=== PATIENT | female | born 2000 | race American Indian/Alaskan Native ===

== ENCOUNTER 2021-01-18 02:49 | Emergency (ER) | payer BC, OTHER ==
[2021-01-18 03:15] VITALS: BP 121/79
[2021-01-18 03:49] LABS: Basophils % (Auto) 0.5 % (0.0-1.8); Eosinophils # (Auto) 0.1 K/mm3 (0.0-0.4); Eosinophils % (Auto) 1.5 % (0.0-4.3); Hematocrit 43.2 % (30.3-42.9); Hemoglobin 14.7 gm/dl (10.1-14.3); Lymphocytes # (Auto) 1.6 K/mm3 (1.2-5.4); Lymphocytes % (Auto) 17.4 % (13.4-35.0); Mean Corpuscular HGB Conc 34 % (30-34); Mean Corpuscular Volume 72 fl (79-97); Monocytes # (Auto) 1.1 K/mm3 (0.0-0.8); Monocytes % (Auto) 11.8 % (0.0-7.3); Platelet Count 317 K/mm3 (140-440); Red Blood Count 5.99 M/mm3 (3.65-5.03); Red Cell Distribution Width 17.4 % (13.2-15.2)
[2021-01-18 04:12] LABS: Alanine Aminotransferase 13 units/L (7-56); Albumin 5.3 g/dL (3.9-5); BUN/Creatinine Ratio 13; Blood Urea Nitrogen 12 mg/dL (7-17); Calcium 9.6 mg/dL (8.4-10.2); Hemolysis Index 2
[2021-01-18 04:21] LABS: Bacteria,Urine 1+ /HPF (Negative); Hyaline Casts,Urine 3 /LPF; Mucus,Urine 1+ /HPF
[2021-01-18 04:22] LABS: HCG Qualitative,Urine Negative (Negative)
[2021-01-18 04:25] LABS: Bilirubin,Urine NEG (Negative); Blood,Urine NEG (Negative); Color,Urine Yellow (Yellow)
[2021-01-18] MEDS ORDERED: ONDANSETRON 4 MG ODT TAB PO STA (05:56)
[2021-01-18] MEDS ORDERED: HYDROcodone/ACETAMINOPHEN 5-325 MG TAB PO STA (05:56)
--- NOTE | 2021-01-18 06:14 | Emergency Department Report ---
ED N/V/D HPI - General Chief complaint: Abdominal Pain Stated complaint: NAUSEA/VOMITING/DIFFICULT URINATION Time Seen by Provider: 01/18/21 05:53 Source: patient Mode of arrival: Ambulatory Limitations: No Limitations - History of Present Illness Initial comments: 20-year-old female is emerged from complaining of a 1 week history of abdominal pain associated with nausea vomiting and diarrhea. States pain started in her flank and has been radiating towards her abdomen and abdominal cramping nature. No fevers, chills, sweats no chest pain palpitation no nausea vomiting MD complaint: nausea -: Gradual Associated Abdominal Pain: Yes Location: diffuse, flank Radiation: none Severity: mild, moderate Quality: aching, dull Consistency: constant Improves with: none Worsens with: none Associated Symptoms: nausea/vomiting. denies: myalgias, chest pain, cough, fever/chills, loss of appetite, dysuria, shortness of breath, syncope, weakness - Related Data Previous Rx's Medication Instructions Recorded Last Taken Type Ferrous Sulfate [Feosol 325 MG tab] 325 mg PO BID #60 tablet 08/29/20 Unknown Rx Ibuprofen [Motrin] 600 mg PO Q6H PRN #30 tablet 08/29/20 Unknown Rx Hyoscyamine Subl [Levsin Sl 0.125 0.125 mg PO Q6HR #20 tablet 01/18/21 Unknown Rx TAB] Ondansetron [Zofran ODT TAB] 4 mg PO ONCE #20 tab.rapdis 01/18/21 Unknown Rx traMADoL [Ultram] 50 mg PO Q6HR PRN #14 tablet 01/18/21 Unknown Rx Allergies Allergy/AdvReac Type Severity Reaction Status Date / Time No Known Allergies Allergy Unverified 03/02/20 11:07 ED Review of Systems ROS: Stated complaint: NAUSEA/VOMITING/DIFFICULT URINATION Other details as noted in HPI Comment: All other systems reviewed and negative ED Past Medical Hx - Past Medical History Hx Hypertension: No Hx Heart Attack/AMI: No Hx Diabetes: No Hx Deep Vein Thrombosis: No Hx Liver Disease: No Hx Renal Disease: No Hx Sickle Cell Disease: No Hx Seizures: No Hx Asthma: No Hx COPD: No Hx HIV: No - Surgical History Hx Pacemaker: No Hx Internal Defibrillator: No - Social History Smoking Status: Never Smoker - Medications Home Medications: Home Medications Medication Instructions Recorded Confirmed Last Taken Type Ferrous Sulfate [Feosol 325 MG tab] 325 mg PO BID #60 tablet 08/29/20 Unknown Rx Ibuprofen [Motrin] 600 mg PO Q6H PRN #30 tablet 08/29/20 Unknown Rx Hyoscyamine Subl [Levsin Sl 0.125 0.125 mg PO Q6HR #20 tablet 01/18/21 Unknown Rx TAB] Ondansetron [Zofran ODT TAB] 4 mg PO ONCE #20 tab.rapdis 01/18/21 Unknown Rx traMADoL [Ultram] 50 mg PO Q6HR PRN #14 tablet 01/18/21 Unknown Rx ED Physical Exam - General Limitations: No Limitations General appearance: alert, in no apparent distress - Head Head exam: Present: atraumatic, normocephalic - Eye Eye exam: Present: normal appearance, PERRL, EOMI Pupils: Present: normal accommodation - ENT ENT exam: Present: normal exam, mucous membranes moist - Neck Neck exam: Present: normal inspection, full ROM - Respiratory Respiratory exam: Present: normal lung sounds bilaterally. Absent: respiratory distress - Cardiovascular Cardiovascular Exam: Present: regular rate, normal rhythm. Absent: systolic murmur, diastolic murmur, rubs, gallop - GI/Abdominal GI/Abdominal exam: Present: soft, tenderness (To the left upper quadrant.), normal bowel sounds - Extremities Exam Extremities exam: Present: normal inspection - Back Exam Back exam: Present: normal inspection, CVA tenderness (R), other (To lower back region with palpation.) - Neurological Exam Neurological exam: Present: alert, oriented X3, CN II-XII intact, normal gait - Psychiatric Psychiatric exam: Present: normal affect, normal mood - Skin Skin exam: Present: warm, dry, intact, normal color. Absent: rash ED Course Vital Signs 01/18/21 03:13 Temperature 97.7 F Pulse Rate 89 Respiratory 16 Rate Blood Pressure 121/79 O2 Sat by Pulse 89 Oximetry ED Medical Decision Making - Lab Data Result diagrams: 01/18/21 03:26 01/18/21 03:26 - Medical Decision Making The cause of the patient symptoms not clear but the patient is overall well- appearing and suspected to have a transient course of illness. Given the course and examination does not appear to be an emergent cause of the symptoms such as small bowel obstruction, coronary syndrome, bowel ischemia, DKA, pancreatitis, appendicitis, other acute abdomen or other emergent problem. Reassessment after treatment the patient is feeling much much better tolerating p.o. fluids and shows no signs of any dehydration. Disposition discharge home with prompt primary care physician follow-up in the next 24 hours strict return precautions were discussed this patient presents with abdominal pain of unclear etiology. Their evaluation has not identified a emergent etiology for the abdominal pain. Specifically, given the very benign exam, normal laboratory studies, and lack of significant risk factors, I have a very low suspicion for appendicitis, ischemic bowel, bowel perforation, or any other life threatening disease. I have discussed with the patient the level of uncertainty with undifferentiated abdominal pain and clearly explained the need to follow-up as noted on the discharge instructions, or return to the Emergency Department immediately if the pain worsens, develops fever, persistent and uncontrollable vomiting, or for any new symptoms or concerns. I discussed with the patient that this presentation today for abdominal pain could represent a significant risk for an acute abdominal process. Although the tests in the ED were essentially normal, there is still a possibility of a process such as appendicitis, diverticulitis, cholecystitis, ulcer, early bowel obstruction, mesenteric ischemia, kidney stone, or even kidney infection which could subsequently cause disability or . The patient understands that they must return within 24 hours for a recheck or see their physician within 24 hours for re-exam due to the possibility of significant surgical or medical process. Critical care attestation.: If time is entered above; I have spent that time in minutes in the direct care of this critically ill patient, excluding procedure time. ED Disposition Clinical Impression: Nausea, Abdominal pain Disposition: DC-01 TO HOME OR SELFCARE Is pt being admited?: No Does the pt Need Aspirin: No Condition: Stable Instructions: Abdominal Pain (ED), Nausea and Vomiting, Adult, Abdominal Pain, Adult, [id number] Prescriptions: Hyoscyamine Subl [Levsin Sl 0.125 TAB] 0.125 mg PO Q6HR #20 tablet traMADoL [Ultram] 50 mg PO Q6HR PRN #14 tablet PRN Reason: Pain Ondansetron [Zofran ODT TAB] 4 mg PO ONCE #20 tab.rapdis Referrals: [facility] [Provider Group] - 3-5 Days
== END 2021-01-18 06:20 | disposition home or self-care (01) ==
LOC: ED 02:49
DX: R11.0 Nausea (principal); R10.9 Unspecified abdominal pain; Z79.899 Other long term (current) drug therapy
CPT/HCPCS: 36415; 80053; 81001; 81025; 85025; 87086; Q0162

== ENCOUNTER 2021-01-22 11:34 | Emergency (ER) | payer BC, OTHER ==
--- NOTE | 2021-01-22 13:08 | Event Note ---
ED Screening Note Date of service: 01/22/21 Time: 13:07 ED Screening Note: Patient presents with complaints of nausea and vomiting with lower abdominal pain x3 weeks Patient seen here earlier this week for the same-no white count noted at the time She did have a UTI Positive right lower quadrant tenderness on exam today Zofran prescribed not helping This initial assessment/diagnostic orders/clinical plan/treatment(s) is/are subject to change based on patients health status, clinical progression and re- assessment by fellow clinical providers in the ED. Further treatment and workup at subsequent clinical providers discretion. Patient/guardian urged not to elope from the ED as their condition may be serious if not clinically assessed and managed. Initial orders include: Labs CT abdomen likely
[2021-01-22 14:40] LABS: Basophils % (Auto) 0.4 % (0.0-1.8); Eosinophils % (Auto) 0.4 % (0.0-4.3); Hematocrit 44.1 % (30.3-42.9); Hemoglobin 14.6 gm/dl (10.1-14.3); Lymphocytes # (Auto) 1.4 K/mm3 (1.2-5.4); Lymphocytes % (Auto) 27.1 % (13.4-35.0); Mean Corpuscular HGB Conc 33 % (30-34); Mean Corpuscular Volume 73 fl (79-97); Monocytes # (Auto) 0.7 K/mm3 (0.0-0.8); Monocytes % (Auto) 13.2 % (0.0-7.3); Platelet Count 306 K/mm3 (140-440); Red Blood Count 6.09 M/mm3 (3.65-5.03); Red Cell Distribution Width 17.2 % (13.2-15.2)
[2021-01-22 15:39] LABS: Alanine Aminotransferase 21 units/L (7-56); Albumin 5.1 g/dL (3.9-5); BUN/Creatinine Ratio 14; Blood Urea Nitrogen 11 mg/dL (7-17); Calcium 10.1 mg/dL (8.4-10.2); Hemolysis Index 4
[2021-01-22] MEDS ORDERED: HYDROmorphone 1 MG/1 ML INJ IV ONE ×2 (17:21→18:50)
[2021-01-22] MEDS ORDERED: ONDANSETRON 4 MG/2 ML INJ IV ONE (17:21)
[2021-01-22] MEDS ORDERED: SODIUM CHLORIDE 0.9% 1000 ML 1,000 ML IV ONE (17:21)
--- NOTE | 2021-01-22 17:29 | Emergency Department Report ---
ED Abdominal Pain HPI - General Chief Complaint: Abdominal Pain Stated Complaint: NAUSEA/VOMITTING PUI?: No Time Seen by Provider: 01/22/21 13:05 Source: patient Mode of arrival: Ambulatory Limitations: No Limitations - History of Present Illness Initial Comments: Patient is a 20-year-old female presents emergency room with complaints of abdominal pain and nausea vomiting. Patient states the symptoms for 3 weeks. Patient states they are worsening. Patient states she has vomited 4 times today. Patient states she has been is seen multiple times for this in multiple locations. Patient states she was seen here last Monday. And diagnosed with external patient is before that she was seen at [facility] and was discharged. Patient states she never followed up after coming here with a outpatient clinic and was given Zofran. Patient states Zofran is not working. Patient states she has not had a CT scan of her abdomen. Patient denies dysuria. Patient denies diarrhea. Patient states she is having blood streaking in her vomitus. Patient denies gross blood in the vomitus. Patient denies fever and chills. Patient d enies cough. Patient denies chest pain and shortness of breath. Patient states her abdominal pain is 8 out of 10. Patient states the pain is in the bilateral lower quadrants and epigastric. Patient states she had a baby in August. Patient states there is no chance she is . Patient states she is already had a urine and serum test which were both negative. Patient denies recent travel. Patient denies recent international travel. Patient denies exposure to the novel coronavirus. Patient denies sick contacts. Patient denies fever and chills. Patient denies cough. Patient denies diarrhea. Patient denies coming in contact with anybody with symptoms of the novel coronavirus. MD Complaint: abdominal pain -: Sudden Location: LLQ, RLQ, epigastric Radiation: none Migration to: no migration Severity: severe Severity scale (0 -10): 8 Quality: stabbing Consistency: constant Improves With: rest Worsens With: eating, vomiting, movement Associated Symptoms: nausea, vomiting. denies: diarrhea, fever, chills, constipation, dysuria, hematemesis, hematochezia, melena, hematuria, anorexia, syncope Treatments Prior to Arrival: other - Related Data LMP (females 10-50): last week Previous Rx's Medication Instructions Recorded Last Taken Type Ferrous Sulfate [Feosol 325 MG tab] 325 mg PO BID #60 tablet 08/29/20 Unknown Rx Ibuprofen [Motrin] 600 mg PO Q6H PRN #30 tablet 08/29/20 Unknown Rx Hyoscyamine Subl [Levsin Sl 0.125 0.125 mg PO Q6HR #20 tablet 01/18/21 Unknown Rx TAB] Ondansetron [Zofran ODT TAB] 4 mg PO ONCE #20 tab.rapdis 01/22/21 Unknown Rx Promethazine [Phenergan] 25 mg OR Q6HR PRN #15 supp.rect 01/22/21 Unknown Rx traMADoL [Ultram 50 MG tab] 50 mg PO Q6HR PRN #14 tablet 01/22/21 Unknown Rx Allergies Allergy/AdvReac Type Severity Reaction Status Date / Time No Known Allergies Allergy Unverified 03/02/20 11:07 ED Review of Systems ROS: Stated complaint: NAUSEA/VOMITTING Other details as noted in HPI Constitutional: denies: chills, fever Eyes: denies: eye pain, eye discharge, vision change ENT: denies: ear pain, throat pain Respiratory: denies: cough, shortness of breath, wheezing Cardiovascular: denies: chest pain, palpitations Endocrine: no symptoms reported Gastrointestinal: as per HPI, abdominal pain, nausea, vomiting. denies: diarrhea Genitourinary: denies: urgency, dysuria, discharge Musculoskeletal: denies: back pain, joint swelling, arthralgia Skin: denies: rash, lesions Neurological: denies: headache, weakness, paresthesias Psychiatric: denies: anxiety, depression Hematological/Lymphatic: denies: easy bleeding, easy bruising ED Past Medical Hx - Past Medical History Previous Medical History?: No Hx Hypertension: No Hx Heart Attack/AMI: No Hx Diabetes: No Hx Deep Vein Thrombosis: No Hx Liver Disease: No Hx Renal Disease: No Hx Sickle Cell Disease: No Hx Seizures: No Hx Asthma: No Hx COPD: No Hx HIV: No - Surgical History Past Surgical History?: No Hx Pacemaker: No Hx Internal Defibrillator: No - Family History Family history: no significant - Social History Smoking Status: Never Smoker Substance Use Type: None - Medications Home Medications: Home Medications Medication Instructions Recorded Confirmed Last Taken Type Ferrous Sulfate [Feosol 325 MG tab] 325 mg PO BID #60 tablet 08/29/20 Unknown Rx Ibuprofen [Motrin] 600 mg PO Q6H PRN #30 tablet 08/29/20 Unknown Rx Hyoscyamine Subl [Levsin Sl 0.125 0.125 mg PO Q6HR #20 tablet 01/18/21 Unknown Rx TAB] Ondansetron [Zofran ODT TAB] 4 mg PO ONCE #20 tab.rapdis 01/22/21 Unknown Rx Promethazine [Phenergan] 25 mg OR Q6HR PRN #15 supp.rect 01/22/21 Unknown Rx traMADoL [Ultram 50 MG tab] 50 mg PO Q6HR PRN #14 tablet 01/22/21 Unknown Rx ED Physical Exam - General Limitations: No Limitations General appearance: alert, in no apparent distress - Head Head exam: Present: atraumatic, normocephalic - Eye Eye exam: Present: normal appearance - ENT ENT exam: Present: mucous membranes dry - Neck Neck exam: Present: normal inspection - Respiratory Respiratory exam: Present: normal lung sounds bilaterally. Absent: respiratory distress, wheezes, rales - Cardiovascular Cardiovascular Exam: Present: regular rate, normal rhythm. Absent: systolic murmur, diastolic murmur, rubs, gallop - GI/Abdominal GI/Abdominal exam: Present: soft, tenderness, normal bowel sounds. Absent: di stended, guarding - Extremities Exam Extremities exam: Present: normal inspection - Back Exam Back exam: Present: normal inspection - Neurological Exam Neurological exam: Present: alert, oriented X3 - Psychiatric Psychiatric exam: Present: normal affect, normal mood - Skin Skin exam: Present: warm, dry, intact, normal color. Absent: rash ED Course Vital Signs 01/22/21 01/22/21 01/22/21 13:00 17:36 17:45 Temperature 99.1 F Pulse Rate 94 H 75 84 Respiratory 15 11 L 15 Rate Blood Pressure 123/74 107/73 O2 Sat by Pulse 97 99 100 Oximetry 01/22/21 01/22/21 01/22/21 18:01 18:15 18:31 Temperature Pulse Rate 68 81 82 Respiratory 9 L 14 11 L Rate Blood Pressure 120/76 120/76 115/86 O2 Sat by Pulse 99 100 99 Oximetry 01/22/21 01/22/21 01/22/21 19:03 19:15 19:31 Temperature Pulse Rate 93 H 89 89 Respiratory 18 13 16 Rate Blood Pressure 115/86 115/86 115/86 O2 Sat by Pulse 100 98 98 Oximetry 01/22/21 01/22/21 01/22/21 19:45 20:01 20:15 Temperature Pulse Rate 84 85 85 Respiratory 15 16 17 Rate Blood Pressure 115/86 110/70 110/70 O2 Sat by Pulse 100 98 100 Oximetry 01/22/21 01/22/21 20:31 20:45 Temperature Pulse Rate 80 73 Respiratory 25 H 13 Rate Blood Pressure 106/65 106/65 O2 Sat by Pulse 99 100 Oximetry - Reevaluation(s) Reevaluation #1: Patient states she has not vomited in the ER. Patient states he is feeling better. Patient states she believes she can go home. I discussed all results and clinical findings with patient. I discussed plan of care with patient. Patient agrees with plan of care. Patient is stable for discharge. Patient will be discharged home. Patient given discharge instructions. Patient voiced understanding of discharge instructions. 01/22/21 19:48 ED Medical Decision Making - Lab Data Result diagrams: 01/22/21 13:33 01/22/21 13:33 - Radiology Data Radiology results: report reviewed CT ABDOMEN AND PELVIS WITH CONTRAST INDICATION / CLINICAL INFORMATION: abd pain. n/v. TECHNIQUE: Axial CT images were obtained through the abdomen and pelvis after 100 cc Omnipaque 300 milligrams percent IV contrast. All CT scans at this location are performed using CT dose reduction for ALARA by means of automated exposure control. COMPARISON: None available. FINDINGS: LOWER CHEST: No significant abnormality. LIVER: No significant abnormality. GALLBLADDER: No significant abnormality. BILE DUCTS: No significant abnormality. PANCREAS: No significant abnormality. SPLEEN: No significant abnormality. ADRENALS: No significant abnormality. RIGHT KIDNEY and URETER: No significant abnormality. LEFT KIDNEY and URETER: No significant abnormality. STOMACH and SMALL BOWEL: No significant abnormality. COLON: No significant abnormality. APPENDIX: Not identified PERITONEUM: No free fluid. No free air. No fluid collection. LYMPH NODES: No significant adenopathy. AORTA and ARTERIES: No significant abnormality. IVC and VEINS: No significant abnormality. URINARY BLADDER: No significant abnormality. REPRODUCTIVE ORGANS: No significant abnormality. ADDITIONAL FINDINGS: None. SKELETAL SYSTEM: No significant abnormality. IMPRESSION: 1. No significant abnormality. If there is clinical concerns, repeat examination with oral contrast may be of benefit - Medical Decision Making Patient is a 20-year-old female who presents emergency room with complaints of abdominal pain x3 weeks. Patient has been having nausea vomiting for the same amount of time. Patient states her symptoms worse. Patient states she has been evaluated twice in the ER and once at a primary care office. Patient states nothing is working to relieve her pain or her nausea vomiting. Patient states she continues to vomit. Patient had labs done which were remarkable for hypokalemia - Differential Diagnosis IBS, gastroenteritis, abdominal pain, nausea, vomiting, Critical care attestation.: If time is entered above; I have spent that time in minutes in the direct care of this critically ill patient, excluding procedure time. ED Disposition Clinical Impression: Dehydration, Hypokalemia, Gastroenteritis Abdominal pain Qualifiers: Abdominal location: lower abdomen, unspecified Qualified Code(s): R10.30 - Lower abdominal pain, unspecified Nausea & vomiting Qualifiers: Vomiting type: unspecified Vomiting Intractability: non-intractable Qualified Code(s): R11.2 - Nausea with vomiting, unspecified Disposition: DC-01 TO HOME OR SELFCARE Is pt being admited?: No Does the pt Need Aspirin: No Condition: Stable Instructions: Viral Gastroenteritis, Adult, [id number], Hypokalemia, Nausea and Vomiting, Adult, [id number], Dehydration, Adult, [id number], Abdominal Pain, Adult, [id number], Abdominal Pain (ED) Additional Instructions: Patient to follow-up with primary care in 2 to 3 days. Patient to follow-up with gastroenterology in 2 to 3 days. Patient to eat a brat diet. Patient to rest. Patient to increase water. Patient to avoid strenuous exercise or heavy lifting until cleared by gastroenterology and primary care. Patient to take Tylenol as needed for pain. Patient to take meds as directed. Patient to try Zofran for nausea vomiting if the Zofran does not work patient to move to Phener clarice suppositories. Patient to return to the ER if condition worsens, changes or new symptoms arise. Prescriptions: Promethazine [Phenergan] 25 mg OR Q6HR PRN #15 supp.rect PRN Reason: Nausea And Vomiting traMADoL [Ultram 50 MG tab] 50 mg PO Q6HR PRN #14 tablet PRN Reason: Pain Ondansetron [Zofran ODT TAB] 4 mg PO ONCE #20 tab.rapdis Referrals: PRIMARY CARE, [Primary Care Provider] - 2-3 Days RANDEE LUNA MD [Staff Physician] - 2-3 Days Time of Disposition: 19:46
--- NOTE | 2021-01-22 19:21 | Cat Scan Report ---
CT ABDOMEN AND PELVIS WITH CONTRAST INDICATION / CLINICAL INFORMATION: abd pain. n/v. TECHNIQUE: Axial CT images were obtained through the abdomen and pelvis after 100 cc Omnipaque 300 milligrams pe rcent IV contrast. All CT scans at this location are performed using CT dose reduction for ALARA by means of automated exposure control. COMPARISON: None available. FINDINGS: LOWER CHEST: No significant abnormality. LIVER: No significant abnormality. GALLBLADDER: No significant abnormality. BILE DUCTS: No significant abnormality. PANCREAS: No significant abnormality. SPLEEN: No significant abnormality. ADRENALS: No significant abnormality. RIGHT KIDNEY and URETER: No significant abnormality. LEFT KIDNEY and URETER: No significant abnormality. STOMACH and SMALL BOWEL: No significant abnormality. COLON: No significant abnormality. APPENDIX: Not identified PERITONEUM: No free fluid. No free air. No fluid collection. LYMPH NODES: No significant adenopathy. AORTA and ARTERIES: No significant abnormality. IVC and VEINS: No significant abnormality. URINARY BLADDER: No significant abnormality. REPRODUCTIVE ORGANS: No significant abnormality. ADDITIONAL FINDINGS: None. SKELETAL SYSTEM: No significant abnormality. IMPRESSION: 1. No significant abnormality. If there is clinical concerns, repeat examination with oral contrast m ay be of benefit Signer Name: Rafa Fajardo MD Signed: 01/22/2021 7:16 PM Workstation Name: [id number]
[2021-01-22] MEDS ORDERED: METOCLOPRAMIDE 10 MG/2 ML INJ IV ONE (20:56)
[2021-01-22 21:02] VITALS: BP 106/65
== END 2021-01-22 21:08 | disposition home or self-care (01) ==
LOC: ED 11:34
DX: E86.0 Dehydration (principal); K52.9 Noninfective gastroenteritis and colitis, unspecified; E87.6 Hypokalemia; R10.13 Epigastric pain; R10.11 Right upper quadrant pain; R10.12 Left upper quadrant pain; Z79.1 Long term (current) use of non-steroidal anti-inflammatories (NSAID); Z79.899 Other long term (current) drug therapy
CPT/HCPCS: 36415; 74177; 80053; 83690; 84703; 85025; 96361; 96374; 96375; 96376; 99284; J1170; J2405; J2765; J7030; Q9967

== ENCOUNTER 2021-03-21 16:14 | Emergency (ER) | payer BC, OTHER ==
[2021-03-21 18:31] VITALS: BP 110/58
== END 2021-03-21 23:00 | disposition left against medical advice (07) ==
LOC: ED 16:14
DX: R11.2 Nausea with vomiting, unspecified (principal); Z53.21 Procedure and treatment not carried out due to patient leaving prior to being seen by health care provider; Z3A.00 Weeks of gestation of pregnancy not specified
CPT/HCPCS: 36415; 80053; 83690; 84703; 85025

== ENCOUNTER 2021-03-27 12:45 | Emergency (ER) | payer BC, OTHER ==
[2021-03-27 15:47] LABS: Bacteria,Urine 1+ /HPF (Negative); Bilirubin,Urine NEG (Negative); Blood,Urine NEG (Negative); Color,Urine Yellow (Yellow); Mucus,Urine 3+ /HPF; Sperm,Urine FEW /HPF (NP); Urobilinogen,Urine < 2.0 mg/dL (<2.0)
--- NOTE | 2021-03-27 17:33 | Event Note ---
ED Screening Note Date of service: 03/27/21 Time: 17:32 ED Screening Note: 20-year-old female patient, unknown gestational age, unknown LMP, presents to the emergency department with complaints of lower abdominal pain, nausea, and vomiting for 1 week. General: Awake, appropriately interactive. Pacing the room. Neck: Supple. Full range of motion intact. Cardiovascular: Normal peripheral perfusion. Pulmonary: No respiratory distress. Patient is speaking normally without use of accessory muscles. Skin: No apparent rashes or lesions. Neurological: No facial asymmetry. Speech is clear. Follows commands. Patient is alert and oriented. Musculoskeletal: Moves all four extremities spontaneously with normal range of motion. Psych: Cooperative. Appropriate mood and affect. I have greeted and performed a focused rapid initial assessment of this patient. A comprehensive ED assessment and evaluation of the patient, analysis of all test results, and completion of the medical decision-making process will be conducted by additional ED providers. This initial assessment/diagnostic orders/clinical plan/treatment(s) is/are subject to change based on patients health status, clinical progression and re-assessment. Further treatment and workup at subsequent clinical provider's discretion. Patient/guardian urged not to elope from the ED as their condition may be serious if not clinically assessed and managed.
[2021-03-27 18:17] LABS: Basophils % (Auto) 0.3 % (0.0-1.8); Hematocrit 37.9 % (30.3-42.9); Hemoglobin 12.9 gm/dl (10.1-14.3); Lymphocytes # (Auto) 1.4 K/mm3 (1.2-5.4); Mean Corpuscular HGB Conc 34 % (30-34); Mean Corpuscular Volume 77 fl (79-97); Monocytes # (Auto) 0.6 K/mm3 (0.0-0.8); Monocytes % (Auto) 8.3 % (0.0-7.3); Platelet Count 298 K/mm3 (140-440); Red Blood Count 4.93 M/mm3 (3.65-5.03); Red Cell Distribution Width 17.4 % (13.2-15.2)
[2021-03-27 18:27] LABS: Alanine Aminotransferase 7 units/L (7-56); Albumin 4.6 g/dL (3.9-5); Blood Urea Nitrogen 6 mg/dL (7-17); Calcium 9.9 mg/dL (8.4-10.2); Hemolysis Index 8
[2021-03-27 18:39] LABS: BUN/Creatinine Ratio 12
--- NOTE | 2021-03-27 18:59 | Ultrasound Report ---
EARLY OBSTETRICAL ULTRASOUND INDICATION: abd pain/nausea/vomiting, , wks along COMPARISON: None pertinent available TECHNIQUE: Transabdominal and endovaginal FINDINGS: Early intrauterine is noted. pole and yolk sac are seen. Cardiac activity w as documented with heart rate of 157 bpm period estimated gestational age by crown-rump length is 8 weeks 2 days. No obvious abnormalities are seen. Right ovary measures 4.1 cm in length and shows a 2.1 cm probable small hemorrhagic cyst. Left ovary measures 3.8 cm in length and shows no abnormalities. Only minimal free fluid is seen. IMPRESSION: Normal-appearing early intrauterine Signer Name: Gallito Diaz MD Signed: 03/27/2021 6:54 PM Workstation Name: [id number]
[2021-03-27] MEDS ORDERED: SODIUM CHLORIDE 0.9% 1000 ML 1,000 ML IV ONE (20:07)
[2021-03-27] MEDS ORDERED: diphenhydrAMINE 50 MG/ML VIAL IV STA (20:07)
[2021-03-27] MEDS ORDERED: METOCLOPRAMIDE 10 MG/2 ML INJ IV STA (20:07)
--- NOTE | 2021-03-27 20:23 | Emergency Department Report ---
ED Abdominal Pain HPI - General Chief Complaint: Abdominal Pain Stated Complaint: /STOMACH PAIN/NAUSEA Time Seen by Provider: 03/27/21 20:01 Source: patient Mode of arrival: Ambulatory Limitations: No Limitations - History of Present Illness Initial Comments: 20-year-old F [place] female vaginal presents emergency department complaining of current having increased episodes of vomiting without diarrhea. Reports no hemoptysis no hematemesis no vaginal bleeding no vaginal discharge has vague abdominal cramps around her abdomen. Not yet followed up with an EQUIPMENT MAINTENANCE SUPERVISOR unsure of current age has attempted utilize Zofran with minimal improvement. Location: diffuse Radiation: none Migration to: no migration Severity: mild Severity scale (0 -10): 10 Quality: dull Improves With: nothing Worsens With: nothing Associated Symptoms: denies other symptoms - Related Data Previous Rx's Medication Instructions Recorded Last Taken Type Ferrous Sulfate [Feosol 325 MG tab] 325 mg PO BID #60 tablet 08/29/20 Unknown Rx Ibuprofen [Motrin] 600 mg PO Q6H PRN #30 tablet 08/29/20 Unknown Rx Hyoscyamine Subl [Levsin Sl 0.125 0.125 mg PO Q6HR #20 tablet 01/18/21 Unknown Rx TAB] Ondansetron [Zofran ODT TAB] 4 mg PO ONCE #20 tab.rapdis 01/22/21 Unknown Rx Promethazine [Phenergan] 25 mg FL Q6HR PRN #15 supp.rect 01/22/21 Unknown Rx traMADoL [Ultram 50 MG tab] 50 mg PO Q6HR PRN #14 tablet 01/22/21 Unknown Rx Doxylamine Succinate/Vit B6 1 each PO BID #30 tablet. 03/27/21 Unknown Rx [Conner Francisco 10-10 mg Tablet] Allergies Allergy/AdvReac Type Severity Reaction Status Date / Time No Known Allergies Allergy Unverified 03/02/20 11:07 ED Review of Systems ROS: Stated complaint: /STOMACH PAIN/NAUSEA Other details as noted in HPI Comment: All other systems reviewed and negative ED Past Medical Hx - Past Medical History Previous Medical History?: No Hx Hypertension: No Hx Heart Attack/AMI: No Hx Diabetes: No Hx Deep Vein Thrombosis: No Hx Liver Disease: No Hx Renal Disease: No Hx Sickle Cell Disease: No Hx Seizures: No Hx Asthma: No Hx COPD: No Hx HIV: No - Surgical History Past Surgical History?: No Hx Pacemaker: No Hx Internal Defibrillator: No - Social History Smoking Status: Never Smoker Substance Use Type: None - Medications Home Medications: Home Medications Medication Instructions Recorded Confirmed Last Taken Type Ferrous Sulfate [Feosol 325 MG tab] 325 mg PO BID #60 tablet 08/29/20 Unknown Rx Ibuprofen [Motrin] 600 mg PO Q6H PRN #30 tablet 08/29/20 Unknown Rx Hyoscyamine Subl [Levsin Sl 0.125 0.125 mg PO Q6HR #20 tablet 01/18/21 Unknown Rx TAB] Ondansetron [Zofran ODT TAB] 4 mg PO ONCE #20 tab.rapdis 01/22/21 Unknown Rx Promethazine [Phenergan] 25 mg FL Q6HR PRN #15 supp.rect 01/22/21 Unknown Rx traMADoL [Ultram 50 MG tab] 50 mg PO Q6HR PRN #14 tablet 01/22/21 Unknown Rx Doxylamine Succinate/Vit B6 1 each PO BID #30 tablet.dr 03/27/21 Unknown Rx [Conner Francisco 10-10 mg Tablet] ED Physical Exam - General Limitations: No Limitations General appearance: alert, in no apparent distress - Head Head exam: Present: atraumatic, normocephalic - Eye Eye exam: Present: normal appearance, PERRL, EOMI Pupils: Present: normal accommodation - ENT ENT exam: Present: normal exam, normal orophraynx, mucous membranes moist, TM's normal bilaterally - Neck Neck exam: Present: normal inspection, full ROM - Respiratory Respiratory exam: Present: normal lung sounds bilaterally. Absent: respiratory distress, wheezes, rales, chest wall tenderness - Cardiovascular Cardiovascular Exam: Present: regular rate, normal rhythm. Absent: systolic murmur, diastolic murmur, rubs, gallop - GI/Abdominal GI/Abdominal exam: Present: soft, normal bowel sounds. Absent: distended, tenderness, guarding, hyperactive bowel sounds, hypoactive bowel sounds, organomegaly, bruit, pulsatile mass - Extremities Exam Extremities exam: Present: normal inspection, normal capillary refill - Back Exam Back exam: Present: normal inspection, full ROM - Neurological Exam Neurological exam: Present: alert, oriented X3, CN II-XII intact - Psychiatric Psychiatric exam: Present: normal affect, normal mood - Skin Skin exam: Present: warm, dry, intact, normal color. Absent: rash ED Course Vital Signs 03/27/21 14:57 Temperature 98.7 F Pulse Rate 67 Respiratory 18 Rate Blood Pressure 112/77 [Right] O2 Sat by Pulse 98 Oximetry ED Medical Decision Making - Lab Data Result diagrams: 03/27/21 17:41 03/27/21 17:41 - Radiology Data Radiology results: report reviewed [facility] [address] [place] [address] Ultrasound Report Signed Patient: FABRICE VERGARA MR#: [id number] : 2000 Acct:[id number] Age/Sex: 20 / F ADM Date: 03/27/21 Loc: ED Attending Dr: Ordering Physician: SHOBHA CASTRO Date of Service: 03/27/21 Procedure(s): US OB transvaginal Accession Number(s): [id number] cc: SHOBHA CASTRO EARLY OBSTETRICAL ULTRASOUND INDICATION: abd pain/nausea/vomiting, , wks along COMPARISON: None pertinent available TECHNIQUE: Transabdominal and endovaginal FINDINGS: Early intrauterine is noted. pole and yolk sac are seen. Cardiac activity was documented with heart rate of 157 bpm period estimated gestational age by crown-rump length is 8 weeks 2 days. No obvious abnormalities are seen. Right ovary measures 4.1 cm in length and shows a 2.1 cm probable small hemorrhagic cyst. Left ovary measures 3.8 cm in length and shows no abnormalities. Only minimal free fluid is seen. IMPRESSION: Normal-appearing early intrauterine Signer Name: Gallito Diaz MD Signed: 03/27/2021 6:54 PM Workstation Name: [id number] Transcribed By: GJ Dictated By: Gallito Diza MD Electronically Authenticated By: Gallito Diaz MD Signed Date/Time: 03/27/211853 DD/ 50 TD/TT: - Medical Decision Making 20-year-old G2, P1 vaginal female presents emergency department complaining of nausea and vomiting without diarrhea. The patient is overall well-appearing and suspected to have hyperemesis gravidarum. Given the history of examination he does not appear to be an emergency cause for the symptoms such as small bowel obstruction, coronary syndrome, bowel ischemia, DKA, pancreatitis, appendicitis, acute abdomen no emergent problem. Patient was treated with Reglan, Benadryl, fluids as well as vitamin D6. After treatment patient is feeling much better tolerating p.o. fluids shows no signs of dehydration. Please be stable right now no vomiting while in the emergency department under my care. Her vital signs are stable she is tolerating sips of of p.o. advised on the importance of follow-up with the EQUIPMENT MAINTENANCE SUPERVISOR of which she states she will use her previous EQUIPMENT MAINTENANCE SUPERVISOR. Critical care attestation.: If time is entered above; I have spent that time in minutes in the direct care of this critically ill patient, excluding procedure time. ED Disposition Clinical Impression: , , excessive vomiting Disposition: 01 HOME / SELF CARE / HOMELESS Is pt being admited?: No Does the pt Need Aspirin: No Condition: Stable Instructions: and Travel, Hyperemesis Gravidarum, Nausea and Vomiting, Adult, [id number], Morning Sickness, [id number], Abdominal Pain (ED) Additional Instructions: The ultrasound shows a normal-appearing intrauterine with a heart rate of 157 please be sure to follow-up with your EQUIPMENT MAINTENANCE SUPERVISOR Prescriptions: Doxylamine Succinate/Vit B6 [Conner Francisco 10-10 mg Tablet] 1 each PO BID #30 tablet. Referrals: PRIMARY CARE, [Primary Care Provider] - 3-5 Days [facility] [Provider Group] - 3-5 Days
[2021-03-27 23:05] VITALS: BP 122/77
== END 2021-03-27 23:00 | disposition home or self-care (01) ==
LOC: ED 12:45
DX: O21.9 Vomiting of pregnancy, unspecified (principal); Z3A.08 8 weeks gestation of pregnancy
CPT/HCPCS: 36415; 76801; 76817; 80053; 81001; 83690; 83735; 84702; 85025; 86900; 86901; 96361; 96374; 96375; 99284; J1200; J2765; J7030

== ENCOUNTER 2021-04-11 13:08 | Emergency (ER) | payer BC, OTHER ==
[2021-04-11 13:23] VITALS: BP 110/68
[2021-04-11] MEDS ORDERED: SODIUM CHLORIDE 0.9% 1000 ML 1,000 ML IV ONE (13:39)
[2021-04-11] MEDS ORDERED: ONDANSETRON 4 MG/2 ML INJ IV ONE (13:39)
--- NOTE | 2021-04-11 13:42 | Emergency Department Report ---
ED General Adult HPI - General Chief complaint: Nausea/Vomiting/Diarrhea Stated complaint: 4WKS PREG, NAUSEA VOMITING Time Seen by Provider: 04/11/21 13:39 Source: patient Mode of arrival: Ambulatory Limitations: No Limitations - History of Present Illness Initial comments: Patient is 20 years old female 2 para 1, last period was beginning . No care so far. Patient presented to the ER complaining of lower abdominal pain, nausea and vomiting. Patient stated that she is unable to keep anything down for the last few days. Patient denied any vaginal bleeding or vaginal discharge. No chest pain or shortness of breath. No fever or chills. - Related Data Previous Rx's Medication Instructions Recorded Last Taken Type Ferrous Sulfate [Feosol 325 MG tab] 325 mg PO BID #60 tablet 08/29/20 Unknown Rx Ibuprofen [Motrin] 600 mg PO Q6H PRN #30 tablet 08/29/20 Unknown Rx Hyoscyamine Subl [Levsin Sl 0.125 0.125 mg PO Q6HR #20 tablet 01/18/21 Unknown Rx TAB] Ondansetron [Zofran ODT TAB] 4 mg PO ONCE #20 tab.rapdis 01/22/21 Unknown Rx Promethazine [Phenergan] 25 mg SC Q6HR PRN #15 supp.rect 01/22/21 Unknown Rx traMADoL [Ultram 50 MG tab] 50 mg PO Q6HR PRN #14 tablet 01/22/21 Unknown Rx Doxylamine Succinate/Vit B6 1 each PO BID #30 tablet. 03/27/21 Unknown Rx [Conner Francisco 10-10 mg Tablet] Ondansetron [Zofran Odt] 4 mg PO Q8HR PRN #20 tab.rapdis 04/11/21 Unknown Rx Allergies Allergy/AdvReac Type Severity Reaction Status Date / Time No Known Allergies Allergy Unverified 03/02/20 11:07 ED Review of Systems ROS: Stated complaint: 4WKS PREG, NAUSEA VOMITING Other details as noted in HPI Comment: All other systems reviewed and negative Constitutional: denies: chills, fever Respiratory: denies: cough, shortness of breath, SOB with exertion, SOB at rest Cardiovascular: denies: chest pain, palpitations Gastrointestinal: abdominal pain, nausea, vomiting. denies: diarrhea, constipation, hematemesis, melena, hematochezia Musculoskeletal: denies: back pain Neurological: denies: headache, weakness, numbness, paresthesias, confusion, abnormal gait ED Past Medical Hx - Past Medical History Previous Medical History?: No Hx Hypertension: No Hx Heart Attack/AMI: No Hx Diabetes: No Hx Deep Vein Thrombosis: No Hx Liver Disease: No Hx Renal Disease: No Hx Sickle Cell Disease: No Hx Seizures: No Hx Asthma: No Hx COPD: No Hx HIV: No - Surgical History Past Surgical History?: No Hx Pacemaker: No Hx Internal Defibrillator: No - Social History Smoking Status: Never Smoker Substance Use Type: None - Medications Home Medications: Home Medications Medication Instructions Recorded Confirmed Last Taken Type Ferrous Sulfate [Feosol 325 MG tab] 325 mg PO BID #60 tablet 08/29/20 Unknown Rx Ibuprofen [Motrin] 600 mg PO Q6H PRN #30 tablet 08/29/20 Unknown Rx Hyoscyamine Subl [Levsin Sl 0.125 0.125 mg PO Q6HR #20 tablet 01/18/21 Unknown Rx TAB] Ondansetron [Zofran ODT TAB] 4 mg PO ONCE #20 tab.rapdis 01/22/21 Unknown Rx Promethazine [Phenergan] 25 mg SC Q6HR PRN #15 supp.rect 01/22/21 Unknown Rx traMADoL [Ultram 50 MG tab] 50 mg PO Q6HR PRN #14 tablet 01/22/21 Unknown Rx Doxylamine Succinate/Vit B6 1 each PO BID #30 tablet.dr 03/27/21 Unknown Rx [Diclegis Dr 10-10 mg Tablet] Ondansetron [Zofran Odt] 4 mg PO Q8HR PRN #20 tab.rapdis 04/11/21 Unknown Rx ED Physical Exam - General Limitations: No Limitations General appearance: alert, in no apparent distress - Head Head exam: Present: atraumatic, normocephalic, normal inspection - ENT ENT exam: Present: mucous membranes dry - Neck Neck exam: Present: normal inspection, full ROM. Absent: tenderness, meningismus - Respiratory Respiratory exam: Present: normal lung sounds bilaterally - Cardiovascular Cardiovascular Exam: Present: regular rate, normal rhythm, normal heart sounds - GI/Abdominal GI/Abdominal exam: Present: soft, normal bowel sounds. Absent: distended, tenderness, guarding, rebound, rigid, organomegaly, mass, bruit, pulsatile mass, hernia - Extremities Exam Extremities exam: Present: normal inspection, full ROM, normal capillary refill. Absent: tenderness, pedal edema, joint swelling, calf tenderness - Back Exam Back exam: Present: normal inspection, full ROM. Absent: CVA tenderness (R), CVA tenderness (L) - Neurological Exam Neurological exam: Present: alert, oriented X3, CN II-XII intact, normal gait, reflexes normal. Absent: motor sensory deficit - Psychiatric Psychiatric exam: Present: normal mood - Skin Skin exam: Present: warm, dry, intact, normal color ED Course Vital Signs 04/11/21 13:21 Temperature 97.7 F Pulse Rate 94 H Respiratory 18 Rate Blood Pressure 110/68 O2 Sat by Pulse 96 Oximetry ED Medical Decision Making - Lab Data Result diagrams: 04/11/21 13:59 04/11/21 13:59 - Radiology Data Radiology results: report reviewed - Medical Decision Making Patient is 20 years old female 2 para 1, last. Was beginning of January. No care so far. Patient presented to the ER complaining of lower abdominal pain, nausea and vomiting. Patient stated that she is unable to keep anything down for the last few days. Patient denied any vaginal bleeding or vaginal discharge. No chest pain or shortness of breath. No fever or chills. Labs reviewed and is unremarkable. Patient received normal saline 1 L and Zofran. Patient stated that she is feeling better no nausea or vomiting. Ultrasound showed viable 11 weeks intrauterine . Patient given prescription for Zofran and advised to follow-up with my CURTAIN STRETCHER ASSEMBLER in the next 2 to 3 days and to return to the ER if she develop any new symptoms. Critical care attestation.: If time is entered above; I have spent that time in minutes in the direct care of this critically ill patient, excluding procedure time. ED Disposition Clinical Impression: Abdominal pain affecting , Nausea/vomiting in Disposition: 01 HOME / SELF CARE / HOMELESS Is pt being admited?: No Condition: Stable Instructions: Abdominal Pain During , [id number], Nausea and Vomiting, Adult Prescriptions: Ondansetron [Zofran Odt] 4 mg PO Q8HR PRN #20 tab.rapdis PRN Reason: Nausea And Vomiting Referrals: PRIMARY CARE, [Primary Care Provider] - 3-5 Days [facility] [Provider Group] - 3-5 Days
[2021-04-11 14:47] LABS: Basophils % (Auto) 0.4 % (0.0-1.8); Hematocrit 40.5 % (30.3-42.9); Hemoglobin 14.2 gm/dl (10.1-14.3); Lymphocytes # (Auto) 1.5 K/mm3 (1.2-5.4); Lymphocytes % (Auto) 26.4 % (13.4-35.0); Mean Corpuscular HGB Conc 35 % (30-34); Mean Corpuscular Volume 77 fl (79-97); Monocytes # (Auto) 0.5 K/mm3 (0.0-0.8); Monocytes % (Auto) 8.9 % (0.0-7.3); Platelet Count 258 K/mm3 (140-440); Red Blood Count 5.27 M/mm3 (3.65-5.03); Red Cell Distribution Width 16.9 % (13.2-15.2)
[2021-04-11 15:01] LABS: Blood Urea Nitrogen 6 mg/dL (7-17); Calcium 10.2 mg/dL (8.4-10.2); Hemolysis Index 14
[2021-04-11 15:05] LABS: Albumin 4.7 g/dL (3.9-5); Bilirubin,Direct 0.2 mg/dL (0-0.2)
[2021-04-11 15:11] LABS: BUN/Creatinine Ratio 10
--- NOTE | 2021-04-11 16:53 | Ultrasound Report ---
ULTRASOUND OBSTETRIC INDICATION: abdominal pain/. TECHNIQUE: Transabdominal. COMPARISON: OB ultrasound dated 03/27/2021. FINDINGS: GESTATIONAL SAC: Well-defined oval shape and intrauterine in location. YOLK SAC: No significant abnormality. EMBRYO/FETUS: No significant abnormality. - Finley-Rump Length = 4.2 cm = 11 weeks, 1 day(s). - Heart Rate = 156 beats per minute. ADNEXA: No significant abnormality. FREE FLUID: None. ADDITIONAL FINDINGS: A probable small area of subchorionic hemorrhage measures up to 1.6 cm. IMPRESSION: 1. Single, living intrauterine with estimated sonographic age of 11 weeks, 1 day(s). 2. Probable small area of subchorionic hemorrhage measuring up to 1.6 cm. Signer Name: Daniel Curiel MD Signed: 04/11/2021 4:48 PM Workstation Name: [id number]
== END 2021-04-11 17:31 | disposition home or self-care (01) ==
LOC: ED 13:08
DX: O26.891 Other specified pregnancy related conditions, first trimester (principal); O21.8 Other vomiting complicating pregnancy; R10.30 Lower abdominal pain, unspecified; Z3A.01 Less than 8 weeks gestation of pregnancy
CPT/HCPCS: 36415; 76801; 80048; 80076; 83690; 84702; 85025; 96361; 96374; 99284; J2405; J7030

== ENCOUNTER 2021-04-24 14:43 | Inpatient (IN) | payer BC, OTHER ==
[2021-04-24] MEDS ORDERED: LACTATED RINGERS 1,000 ML IV ONE (15:34)
[2021-04-24] MEDS ORDERED: METOCLOPRAMIDE 10 MG/2 ML INJ IV ONE (15:36)
--- NOTE | 2021-04-24 15:36 | Emergency Department Report ---
ED HPI - General Chief complaint: Nausea/Vomiting/Diarrhea Stated complaint: 13 WKS PAIN NAUSEA Time Seen by Provider: 04/24/21 15:08 Source: patient, RN notes reviewed, old records reviewed Mode of arrival: Ambulatory Limitations: No Limitations - History of Present Illness Initial comments: 21-year-old female who is currently about 13 weeks presents to the ER today with complaints of nausea and vomiting. Patient states that she has been vomiting since she has been . She states that she was seen here around the end of March, beginning of April for similar symptoms and was prescribed Zofran but she states that it has not been helping. She states that she has been vomiting every day, unable to keep anything down and has had decreased appetite. She states that her first visit is scheduled for next Monday with my FIBER DRIER OPERATOR. She states that the past 2 days she has been having constant lower abdominal cramping and she noticed that her urine has been darker than normal. She denies any hematuria or dysuria. She has already to OB US, most recent was done here on 04/11 which showed single live IUP. She states that she did have some mild bleeding 2 to 3 weeks ago but this has since resolved. She is Ab0. She has not had any abdominal surgeries in the past. MD Complaint: abdominal pain, other (nausea and vomiting ) -: week(s) - Related Data Previous Rx's Medication Instructions Recorded Last Taken Type Ferrous Sulfate [Feosol 325 MG tab] 325 mg PO BID #60 tablet 08/29/20 Unknown Rx Ibuprofen [Motrin] 600 mg PO Q6H PRN #30 tablet 08/29/20 Unknown Rx Hyoscyamine Subl [Levsin Sl 0.125 0.125 mg PO Q6HR #20 tablet 01/18/21 Unknown Rx TAB] Ondansetron [Zofran ODT TAB] 4 mg PO ONCE #20 tab.rapdis 01/22/21 Unknown Rx Promethazine [Phenergan] 25 mg MD Q6HR PRN #15 supp.rect 01/22/21 Unknown Rx traMADoL [Ultram 50 MG tab] 50 mg PO Q6HR PRN #14 tablet 01/22/21 Unknown Rx Doxylamine Succinate/Vit B6 1 each PO BID #30 tablet. 03/27/21 Unknown Rx [Conner Francisco 10-10 mg Tablet] Ondansetron [Zofran Odt] 4 mg PO Q8HR PRN #20 tab.rapdis 04/11/21 Unknown Rx Allergies Allergy/AdvReac Type Severity Reaction Status Date / Time No Known Allergies Allergy Unverified 03/02/20 11:07 ED Review of Systems ROS: Stated complaint: 13 WKS PAIN NAUSEA Other details as noted in HPI Comment: All other systems reviewed and negative Constitutional: denies: chills, diaphoresis, fever, malaise, weakness Eyes: denies: eye pain, eye discharge, vision change ENT: denies: ear pain, throat pain, dental pain, hearing loss, epistaxis, congestion Respiratory: denies: cough, shortness of breath, SOB with exertion, SOB at rest, wheezing Cardiovascular: denies: chest pain, palpitations Gastrointestinal: abdominal pain, nausea, vomiting. denies: diarrhea, constipation, hematemesis, hematochezia Genitourinary: denies: urgency, dysuria, frequency, hematuria, discharge, abnormal menses, dyspareunia Musculoskeletal: as per HPI. denies: back pain, joint swelling, arthralgia, myalgia Skin: denies: rash, lesions, change in color, change in hair/nails, pruritus Neurological: denies: headache, weakness, paresthesias Psychiatric: denies: anxiety, depression, auditory hallucinations, visual oliveira ucinations, homicidal thoughts, suicidal thoughts Hematological/Lymphatic: denies: easy bleeding, easy bruising, swollen glands ED Past Medical Hx - Past Medical History Previous Medical History?: No Hx Hypertension: No Hx Heart Attack/AMI: No Hx Diabetes: No Hx Deep Vein Thrombosis: No Hx Liver Disease: No Hx Renal Disease: No Hx Sickle Cell Disease: No Hx Seizures: No Hx Asthma: No Hx COPD: No Hx HIV: No - Surgical History Past Surgical History?: No Hx Pacemaker: No Hx Internal Defibrillator: No - Social History Smoking Status: Never Smoker Substance Use Type: None - Medications Home Medications: Home Medications Medication Instructions Recorded Confirmed Last Taken Type Ferrous Sulfate [Feosol 325 MG tab] 325 mg PO BID #60 tablet 08/29/20 Unknown Rx Ibuprofen [Motrin] 600 mg PO Q6H PRN #30 tablet 08/29/20 Unknown Rx Hyoscyamine Subl [Levsin Sl 0.125 0.125 mg PO Q6HR #20 tablet 01/18/21 Unknown Rx TAB] Ondansetron [Zofran ODT TAB] 4 mg PO ONCE #20 tab.rapdis 01/22/21 Unknown Rx Promethazine [Phenergan] 25 mg MD Q6HR PRN #15 supp.rect 01/22/21 Unknown Rx traMADoL [Ultram 50 MG tab] 50 mg PO Q6HR PRN #14 tablet 01/22/21 Unknown Rx Doxylamine Succinate/Vit B6 1 each PO BID #30 tablet. 03/27/21 Unknown Rx [Conner Francisco 10-10 mg Tablet] Ondansetron [Zofran Odt] 4 mg PO Q8HR PRN #20 tab.rapdis 04/11/21 Unknown Rx ED Physical Exam - General Limitations: No Limitations ED Course Vital Signs 04/24/21 04/24/21 04/24/21 14:49 20:17 20:19 Temperature 97.9 F 98.4 F 98.4 F Pulse Rate 102 H 84 84 Respiratory 16 12 12 Rate Blood Pressure 115/75 Blood Pressure 104/77 115/75 [Left] O2 Sat by Pulse 97 100 100 Oximetry 04/24/21 20:25 Temperature Pulse Rate Respiratory Rate Blood Pressure Blood Pressure [Left] O2 Sat by Pulse 100 Oximetry ED Medical Decision Making - Lab Data Result diagrams: 04/24/21 15:44 04/24/21 15:44 - Radiology Data Radiology results: report reviewed Report not crossing over into cartmi. Reviewed report in US -part of the gallbladder ultrasound shows small amount of biliary sludge but otherwise unremarkable exam and no inflammation. This was interpreted by Dr. Plascencia. - Medical Decision Making 2005: Patient states that she feels a little better, after IV fluids and meds but states that she is still nauseous. Repeat abdominal exam shows soft nontender abdomen. She currently does not appear toxic or ill-appearing and she is not in any significant distress. Labs reviewed -- CBC shows no emergent abnormalities, CMP shows mild hypokalemia with a potassium of 3.2, hyponatremia with a sodium of 133, and patient LFTs are elevated with an AST of 129, ALT 195, alk phos 135, T bili was normal. LFTs today are worse today when compared to her previous CMP. Her BUN and creatinine were normal. Urinalysis does not show any evidence [place] [id number]. Gallbladder ultrasound shows small amount of biliary sludge but otherwise has unremarkable exam with no inflammation. Patient has already had 2 OB ultrasounds in the past 2 weeks, most recent was done on April 11 which showed a live IUP measuring 11 weeks at the time. Patient has no vaginal bleeding today. No indication for repeat OB ultrasound today. Di scussed lab results with patient, she states that she has been taking Tylenol but only as needed. She denies any history of alcohol abuse. She denies any prior history of liver dysfunction. Discussed case and reviewed finds with Dr. Burns recommend patient for observation, continued hydration and repeating her CMP. 2016: Call placed to Dr. Saint Ulloa, FIBER DRIER OPERATOR on-call. Critical care attestation.: If time is entered above; I have spent that time in minutes in the direct care of this critically ill patient, excluding procedure time. ED Disposition Clinical Impression: Hyperemesis gravidarum, Elevated LFTs, Hypokalemia Disposition: ADMITTED INPATIENT Is pt being admited?: Yes Does the pt Need Aspirin: No Condition: Stable
[2021-04-24 16:08] LABS: Basophils % (Auto) 0.3 % (0.0-1.8); Eosinophils % (Auto) 0.1 % (0.0-4.3); Hematocrit 42.6 % (30.3-42.9); Hemoglobin 14.8 gm/dl (10.1-14.3); Lymphocytes # (Auto) 0.8 K/mm3 (1.2-5.4); Lymphocytes % (Auto) 15.8 % (13.4-35.0); Mean Corpuscular HGB Conc 35 % (30-34); Mean Corpuscular Volume 76 fl (79-97); Monocytes # (Auto) 0.4 K/mm3 (0.0-0.8); Monocytes % (Auto) 7.8 % (0.0-7.3); Platelet Count 263 K/mm3 (140-440); Red Blood Count 5.57 M/mm3 (3.65-5.03); Red Cell Distribution Width 16.1 % (13.2-15.2)
[2021-04-24 16:17] LABS: Alanine Aminotransferase 195 units/L (7-56); Albumin 4.1 g/dL (3.9-5); BUN/Creatinine Ratio 10; Blood Urea Nitrogen 4 mg/dL (7-17); Calcium 10.2 mg/dL (8.4-10.2); Hemolysis Index 4
[2021-04-24] MEDS ORDERED: ONDANSETRON 4 MG/2 ML INJ IV ONE (16:37)
[2021-04-24 17:13] LABS: Bilirubin,Urine SM (Negative); Blood,Urine NEG (Negative); Color,Urine Amber (Yellow); Mucus,Urine 2+ /HPF
[2021-04-24 17:25] LABS: Ictotest,Urine Positive (Negative)
[2021-04-24] MEDS ORDERED: POTASSIUM CHLORIDE ER 20 MEQ TAB PO ONE (18:54)
[2021-04-24] MEDS: POTASSIUM CHLORIDE 20 MEQ in LACTATED RINGERS 1,000 ML IV SCH (21:37)
[2021-04-25] MEDS ORDERED: SODIUM CHLORIDE 0.9% 1000 ML 1,000 ML IV ONE (12:45)
[2021-04-25] MEDS ORDERED: METOCLOPRAMIDE 10 MG/2 ML INJ IV ONE (12:45)
--- NOTE | 2021-04-25 12:47 | Emergency Department Report ---
Blank Doc - Documentation Documentation: 1245 I became involved as no further care had been instituted since yesterday. There is some documentation that the patient was to be admitted and the case was discussed with Dr. Saint Ulloa. There was no admit order. There is no consultation or note from Dr. Saint Ulloa. I have reviewed the labs. Repeat labs have been ordered. Further IV hydration has been ordered. We will reevaluate and then try to disposition the patient. 1445 Patient is still nauseous. Potassium has been noted and is lower than previous. We will attempt to call the physician simulation specialist for Saint Ulloa to figure out next steps and disposition. 1550 Patient was still symptomatic and retching. I have discussed the case with Dr. Saint Ulloa who will admit at this time.
[2021-04-25 14:01] LABS: Alanine Aminotransferase 202 units/L (7-56); Albumin 3.4 g/dL (3.9-5); Blood Urea Nitrogen 3 mg/dL (7-17); Calcium 8.9 mg/dL (8.4-10.2); Hemolysis Index 6
[2021-04-25 14:07] LABS: BUN/Creatinine Ratio 8
[2021-04-25] MEDS ORDERED: POTASSIUM CHLORIDE ER 20 MEQ TAB PO ONE (14:39)
[2021-04-25] MEDS: ONDANSETRON 4 MG/2 ML INJ IV PRN ×2 (17:35→22:45)
[2021-04-25] MEDS: POTASSIUM CHLORIDE 20 MEQ in LACTATED RINGERS 1,000 ML IV SCH (18:41)
[2021-04-25] MEDS ORDERED: PROMETHAZINE 25 MG TAB PO PRN (18:50)
[2021-04-26] MEDS: POTASSIUM CHLORIDE 20 MEQ in LACTATED RINGERS 1,000 ML IV SCH ×2 (06:01→16:34)
[2021-04-26] MEDS: ONDANSETRON 4 MG/2 ML INJ IV PRN ×3 (06:04→18:09)
--- NOTE | 2021-04-26 06:22 | History and Physical Report ---
History of Present Illness Date of examination: 04/26/21 Date of admission: 04/24/21 22:05 Chief complaint: Hyperemesis History of present illness: 21-year-old in the first trimester of her presents to the emergency department with a complaint of multiple episodes of emesis. The patient has not established care as of yet. She reports recent worsening of her symptoms. Right upper quadrant ultrasound does demonstrate evidence of sludge. Patient had findings of elevated LFTs at presentation. Past History Past Medical History: no pertinent history Past Surgical History: no surgical history Social history: single - Obstetrical History : 2 Para: 1 Hx # Term Pregnancies: 1 Number of Pregnancies: 0 Spontaneous Abortions: 0 Induced : 0 Number of Living Children: 1 Medications and Allergies Allergies Allergy/AdvReac Type Severity Reaction Status Date / Time No Known Allergies Allergy Unverified 03/02/20 11:07 Home Medications Medication Instructions Recorded Confirmed Last Taken Type Ferrous Sulfate [Feosol 325 MG tab] 325 mg PO BID #60 tablet 08/29/20 Unknown Rx Ibuprofen [Motrin] 600 mg PO Q6H PRN #30 tablet 08/29/20 Unknown Rx Hyoscyamine Subl [Levsin Sl 0.125 0.125 mg PO Q6HR #20 tablet 01/18/21 Unknown Rx TAB] Ondansetron [Zofran ODT TAB] 4 mg PO ONCE #20 tab.rapdis 01/22/21 Unknown Rx Promethazine [Phenergan] 25 mg ID Q6HR PRN #15 supp.rect 01/22/21 Unknown Rx traMADoL [Ultram 50 MG tab] 50 mg PO Q6HR PRN #14 tablet 01/22/21 Unknown Rx Doxylamine Succinate/Vit B6 1 each PO BID #30 tablet. 03/27/21 Unknown Rx [Conner Francisco 10-10 mg Tablet] Ondansetron [Zofran Odt] 4 mg PO Q8HR PRN #20 tab.rapdis 04/11/21 Unknown Rx Active Meds: Active Medications Hydrocortisone Sodium Succinate (Hydrocortisone Sod Succ 100 Mg/2 Ml Vial) 100 mg IV Q8HR MCKAY Potassium Chloride 20 meq/ (Lactated Ringer's) 1,010 mls @ 100 mls/hr IV DIRECT MCKAY Last Admin: 04/26/21 06:01 Dose: 100 mls/hr Documented by: Metoclopramide HCl (Metoclopramide 10 Mg/2 Ml Inj) 10 mg IV Q6H PRN PRN Reason: Nausea And Vomiting Ondansetron HCl (Ondansetron 4 Mg/2 Ml Inj) 4 mg IV Q4H PRN PRN Reason: Nausea And Vomiting Last Admin: 04/26/21 06:04 Dose: 4 mg Documented by: Promethazine HCl (Promethazine 25 Mg Tab) 25 mg PO Q6H PRN PRN Reason: Nausea And Vomiting Review of Systems Gastrointestinal: nausea, vomiting - Vital Signs Vital signs: Vital Signs Temp Pulse Resp BP Pulse Ox 97.9 F 102 H 16 104/77 97 04/24/21 14:49 04/24/21 14:49 04/24/21 14:49 04/24/21 14:49 04/24/21 14:49 Temp Pulse Resp BP Pulse Ox 98.3 F 63 18 112/68 100 04/26/21 05:25 04/26/21 05:25 04/26/21 05:25 04/26/21 05:25 04/26/21 05:25 - Physical Exam Breasts: Positive: deferred Cardiovascular: Regular rate Lungs: Positive: Clear to auscultation Results Result Diagrams: 04/24/21 15:44 04/25/21 13:01 Abnormal lab results 04/25/21 Range/Units 13:01 Sodium 135 L (137-145) mmol/L Potassium 3.1 L (3.6-5.0) mmol/L Chloride 97.1 L (98-107) mmol/L BUN 3 L (7-17) mg/dL Creatinine 0.4 L (0.6-1.2) mg/dL AST 124 H (5-40) units/L ALT 202 H (7-56) units/L Albumin 3.4 L (3.9-5) g/dL All other labs normal. Assessment and Plan - Patient Problems (1) Hyperemesis gravidarum Current Visit: Yes Status: Acute Plan to address problem: IV hydration and antiemetic therapy Initiate hydrocortisone therapy Repeat comprehensive metabolic panel
[2021-04-26] MEDS: HYDROCORTISONE SOD SUCC 100 MG/2 ML VIAL IV SCH ×3 (07:45→23:35)
[2021-04-26] MEDS: METOCLOPRAMIDE 10 MG/2 ML INJ IV PRN ×2 (07:56→23:35)
[2021-04-26 14:24] LABS: Alanine Aminotransferase 209 units/L (7-56); Albumin 3.6 g/dL (3.9-5); Blood Urea Nitrogen 2 mg/dL (7-17); Calcium 9.2 mg/dL (8.4-10.2); Hemolysis Index 7
[2021-04-26 14:30] LABS: BUN/Creatinine Ratio 5
[2021-04-27] MEDS ORDERED: POTASSIUM CHLORIDE 10 MEQ 10 MEQ/100 ML BAG IV ONE (02:17)
[2021-04-27] MEDS ORDERED: D5W/LACTATED RINGERS 1,000 ML IV SCH (03:00)
[2021-04-27 03:59] LABS: Hepatitis C Virus Antibody Non-Reactive (NonReactive)
[2021-04-27 04:07] LABS: Hepatitis B Surface Antigen Nonreactive (Negative)
[2021-04-27] MEDS: D5W/LACTATED RINGERS 1,000 ML IV SCH ×3 (05:11→18:04)
[2021-04-27] MEDS: METOCLOPRAMIDE 10 MG/2 ML INJ IV PRN ×2 (05:27→11:27)
[2021-04-27] MEDS: PROMETHAZINE 25 MG RECT SUPP PR SCH ×3 (05:56→14:52)
[2021-04-27] MEDS: HYDROCORTISONE SOD SUCC 100 MG/2 ML VIAL IV SCH ×2 (07:35→15:22)
--- NOTE | 2021-04-27 07:43 | Progress Note ---
Assessment and Plan A: Hyperemesis G. P: Continue with IVF and antiemetics as needed. Subjective - Subjective Date of service: 04/27/21 Principal diagnosis: Hyperemesis G. Interval history: Patient is currently resting and has no complaints. She reports no episodes of emesis since last night. She also states that she has been able to P.O. tolerate eloise crackers and ice chips thus far. Patient reports: new complaints Objective - Vital Signs Vital Signs: Vital Signs - 12hr 04/26/21 04/27/21 04/27/21 21:01 01:34 05:09 Temperature 98.2 F 97.9 F 97.8 F Pulse Rate 63 63 78 Respiratory 18 18 18 Rate Blood Pressure 108/71 115/80 120/78 O2 Sat by Pulse 99 99 99 Oximetry - Labs Labs: Abnormal Labs 04/24/21 04/24/21 04/24/21 15:44 15:44 15:44 RBC 5.57 H Hgb 14.8 H MCV 76 L MCH 27 L MCHC 35 H RDW 16.1 H [place] % (Auto) 7.8 H Lymph # (Auto) 0.8 L Seg Neutrophils % 76.0 H Sodium 133 L Potassium 3.2 L Chloride 90.7 L Carbon Dioxide BUN 4 L Creatinine 0.4 L Glucose AST 129 H ALT 195 H Alkaline Phosphatase 135 H Total Protein 8.3 H Albumin TSH HCG, Quant 62799 H Urine WBC (Auto) 04/24/21 04/25/21 04/26/21 16:44 13:01 13:06 RBC Hgb MCV MCH MCHC RDW [place] % (Auto) Lymph # (Auto) Seg Neutrophils % Sodium 135 L 132 L Potassium 3.1 L Chloride 97.1 L 97.7 L Carbon Dioxide 17 L D BUN 3 L 2 L Creatinine 0.4 L 0.4 L Glucose 107 H AST 124 H 107 H ALT 202 H 209 H Alkaline Phosphatase Total Protein Albumin 3.4 L 3.6 L TSH HCG, Quant Urine WBC (Auto) 8.0 H 04/27/21 03:11 RBC Hgb MCV MCH MCHC RDW [place] % (Auto) Lymph # (Auto) Seg Neutrophils % Sodium Potassium Chloride Carbon Dioxide BUN Creatinine Glucose AST ALT Alkaline Phosphatase Total Protein Albumin TSH 0.078 L HCG, Quant Urine WBC (Auto) Laboratory Results - last 24 hr 04/26/21 04/26/2104/27/21 13:06 Unknown 03:11 Sodium 132 L Potassium 4.2 D Chloride 97.7 L Carbon Dioxide 17 L D Anion Gap 22 BUN 2 L Creatinine 0.4 L Estimated GFR > 60 BUN/Creatinine Ratio 5 Glucose 107 H Calcium 9.2 Total Bilirubin 0.60 AST 107 H ALT 209 H Alkaline Phosphatase 101 Total Protein 7.0 Albumin 3.6 L Albumin/Globulin Ratio 1.1 TSH 0.078 L Coronavirus (PCR) Negative Hepatitis A IgM Ab Hep Bs Antigen Hep B Core IgM Ab Hepatitis C Antibody 04/27/21 03:11 Sodium Potassium Chloride Carbon Dioxide Anion Gap BUN Creatinine Estimated GFR BUN/Creatinine Ratio Glucose Calcium Total Bilirubin AST ALT Alkaline Phosphatase Total Protein Albumin Albumin/Globulin Ratio TSH Coronavirus (PCR) Hepatitis A IgM Ab Non-reactive Hep Bs Antigen Nonreactive Hep B Core IgM Ab Non-reactive Hepatitis C Antibody Non-reactive
[2021-04-27] MEDS: PRENATAL VIT27-FE FUMARATE-FOLIC ACID VIT TAB PO SCH (11:30)
[2021-04-27] MEDS: ONDANSETRON 4 MG/2 ML INJ IV PRN ×2 (15:20→20:07)
[2021-04-28] MEDS: HYDROCORTISONE SOD SUCC 100 MG/2 ML VIAL IV SCH ×4 (00:30→21:48)
[2021-04-28] MEDS: D5W/LACTATED RINGERS 1,000 ML IV SCH ×4 (00:45→21:46)
[2021-04-28] MEDS: PROMETHAZINE 25 MG RECT SUPP PR SCH ×2 (05:54→23:46)
[2021-04-28] MEDS: ONDANSETRON 4 MG/2 ML INJ IV PRN (05:55)
--- NOTE | 2021-04-28 09:37 | Progress Note ---
Assessment and Plan A: IUP at 12w6d (ELISABETH 01/28/22 by 8 wk gustavo) Hyperemesis Suspected Gallbladder Sludge Elevated LFTs P: Sluggish improvement in symptoms during hospitalization GI consult today for additional management strategies Continue to monitor clinical status Subjective - Subjective Date of service: 04/28/21 Principal diagnosis: IUP at 12w6d, Hyperemesis, Elevated LFTs Interval history: Pt reports 2 episodes of emesis yesterday. She is able to tolerate ice chips, juice and crackers, but when she attempts to eat anything else, she has emesis. She feels nauseated. She reports that she has "gallbladder sludge" but the official read of her abdominal ultrasound is still pending. CMP for this morning pending. Patient reports: new complaints, no vaginal bleeding Objective - Vital Signs Vital Signs: Vital Signs - 12hr 04/28/21 04/28/21 04/28/21 00:30 04:47 07:41 Temperature 98.4 F 98.4 F 98.5 F Pulse Rate 77 64 58 L Respiratory 18 20 17 Rate Blood Pressure 114/79 117/78 114/71 O2 Sat by Pulse 100 94 98 Oximetry 04/28/21 08:00 Temperature Pulse Rate Respiratory Rate Blood Pressure O2 Sat by Pulse 98 Oximetry - Exam Breasts: deferred Abdomen: Present: soft. Absent: distention, tenderness - Labs Labs: Abnormal Labs 04/24/21 04/24/21 04/24/21 15:44 15:44 15:44 RBC 5.57 H Hgb 14.8 H MCV 76 L MCH 27 L MCHC 35 H RDW 16.1 H [place] % (Auto) 7.8 H Lymph # (Auto) 0.8 L Seg Neutrophils % 76.0 H Sodium 133 L Potassium 3.2 L Chloride 90.7 L Carbon Dioxide BUN 4 L Creatinine 0.4 L Glucose AST 129 H ALT 195 H Alkaline Phosphatase 135 H Total Protein 8.3 H Albumin TSH HCG, Quant 60281 H Urine WBC (Auto) 04/24/21 04/25/21 04/26/21 16:44 13:01 13:06 RBC Hgb MCV MCH MCHC RDW [place] % (Auto) Lymph # (Auto) Seg Neutrophils % Sodium 135 L 132 L Potassium 3.1 L Chloride 97.1 L 97.7 L Carbon Dioxide 17 L D BUN 3 L 2 L Creatinine 0.4 L 0.4 L Glucose 107 H AST 124 H 107 H ALT 202 H 209 H Alkaline Phosphatase Total Protein Albumin 3.4 L 3.6 L TSH HCG, Quant Urine WBC (Auto) 8.0 H 04/27/21 03:11 RBC Hgb MCV MCH MCHC RDW [place] % (Auto) Lymph # (Auto) Seg Neutrophils % Sodium Potassium Chloride Carbon Dioxide BUN Creatinine Glucose AST ALT Alkaline Phosphatase Total Protein Albumin TSH 0.078 L HCG, Quant Urine WBC (Auto)
[2021-04-28 10:51] LABS: Alanine Aminotransferase 168 units/L (7-56); Albumin 3.1 g/dL (3.9-5); Calcium 8.6 mg/dL (8.4-10.2); Hemolysis Index 26
[2021-04-28 11:06] LABS: BUN/Creatinine Ratio 3; Blood Urea Nitrogen < 1 mg/dL (7-17)
--- NOTE | 2021-04-28 15:08 | Gastroenterology Consultation ---
History of Present Illness - Reason for Consult Consult date: 04/28/21 Abnormal LFTs Requesting physician: ARA GUPTA - History of Present Illness The patient is a 21 yo female about 3-4 months with severe nausea and mildly elevated LFTs. She has a hx of nausea and vomiting worse in late at her last time; this time she has been "sick since March." A CT in March was negative. She has no hx of abnl LFTs. An US done in the ER apparently showed sludged. She has N/V with all types of food. There is a family hx of cirrhosis in a GF (alcohol) but no other family members. She takes no routine meds or herbals, and does not drink. She has no severe abdominal pain, just cramps that do not localize to the RUQ. Hepatitis testing negative. Past History Past Medical History: other ( x 1 (vaginal)) Past Surgical History: No surgical history Social history: single. denies: alcohol abuse Family history: other (GF with alcoholic cirrhosis) Medications and Allergies Allergies Allergy/AdvReac Type Severity Reaction Status Date / Time No Known Allergies Allergy Unverified 03/02/20 11:07 Home Medications Medication Instructions Recorded Confirmed Last Taken Type Doxylamine Succinate/Vit B6 1 each PO BID #30 tablet. 03/27/21 04/26/21 Unknown Rx [Conner Francisco 10-10 mg Tablet] Ondansetron [Zofran Odt] 4 mg PO Q8HR PRN #20 tab.rapdis 04/11/21 04/26/21 Unknown Rx Pnv No.121/Iron/Folic Acid 1 tab PO QDAY 04/26/21 04/26/21 Unknown History [ Multivitamin Tablet] Active Meds: Active Medications Hydrocortisone Sodium Succinate (Hydrocortisone Sod Succ 100 Mg/2 Ml Vial) 100 mg IV Q8HR MCKAY Last Admin: 04/28/21 05:55 Dose: 100 mg Documented by: Dextrose/Lactated Ringer's ([email or web address]) 1,000 mls @ 150 mls/hr IV DIRECT MCKAY Last Admin: 04/28/21 00:45 Dose: 150 mls/hr Documented by: Metoclopramide HCl (Metoclopramide 10 Mg/2 Ml Inj) 10 mg IV Q6H PRN PRN Reason: Nausea And Vomiting Last Admin: 04/27/21 11:27 Dose: 10 mg Documented by: Multivitamins/Iron/Calcium ( [id number] Fumarate-Folic Acid Vit Tab) 1 each PO QDAY [facility] Last Admin: 04/27/21 11:30 Dose: Not Given Documented by: Ondansetron HCl (Ondansetron 4 Mg/2 Ml Inj) 4 mg IV Q4H PRN PRN Reason: Nausea And Vomiting Last Admin: 04/28/21 05:55 Dose: 4 mg Documented by: Promethazine HCl (Promethazine 25 Mg Tab) 25 mg PO Q6H PRN PRN Reason: Nausea And Vomiting Promethazine HCl (Promethazine 25 Mg Rect Supp) 25 mg MN Q6H [facility] Last Admin: 04/28/21 05:54 Dose: Not Given Documented by: I HAVE REVIEWED/RECONCILED MEDS Review of Systems - Review of Systems All systems: negative (as noted in the HPI.) Exam - Constitutional Vital Signs: Temp Pulse Resp BP Pulse Ox 98.0 F 57 L 18 117/73 97 04/28/21 12:57 04/28/21 12:57 04/28/21 12:57 04/28/21 12:57 04/28/21 12:57 General appearance: no acute distress - EENT Eyes: PERRL, EOM intact ENT: hearing intact, clear oral mucosa - Neck Neck: supple, normal ROM - Respiratory Respiratory effort: normal Respiratory: bilateral: CTA - Cardiovascular Rhythm: regular Heart Sounds: Present: S1 & S2 Extremities: no ischemia, No edema - Gastrointestinal General gastrointestinal: Present: soft, non-tender, non-distended - Integumentary Integumentary: Present: clear, warm, dry - Neurologic Neurological: alert and oriented x3 - Labs CBC & Chem 7: 04/24/21 15:44 04/28/21 10:10 Lab Results: Laboratory Results - last 24 hr 04/28/21 10:10 Sodium 138 Potassium 3.1 L D Chloride 98.3 Carbon Dioxide 25 D Anion Gap 18 BUN < 1 L Creatinine 0.4 L Estimated GFR > 60 BUN/Creatinine Ratio 3 Glucose 167 H Calcium 8.6 Total Bilirubin 0.20 AST 56 H ALT 168 H Alkaline Phosphatase 76 Total Protein 5.9 L Albumin 3.1 L Albumin/Globulin Ratio 1.1 Assessment and Plan - Patient Problems (1) Elevated LFTs Current Visit: Yes Status: Acute Plan to address problem: - Will check CMV and Deanna Mcmullen. - May need CCY if RUQ US confirms gallbladder sludge. - For now, continue current antiemetic therapy. (2) Hyperemesis gravidarum Current Visit: Yes Status: Acute
[2021-04-28] MEDS: PRENATAL VIT27-FE FUMARATE-FOLIC ACID VIT TAB PO SCH (15:15)
[2021-04-29] MEDS: D5W/LACTATED RINGERS 1,000 ML IV SCH ×3 (05:41→20:45)
[2021-04-29] MEDS: HYDROCORTISONE SOD SUCC 100 MG/2 ML VIAL IV SCH ×3 (05:41→22:26)
[2021-04-29] MEDS: ONDANSETRON 4 MG/2 ML INJ IV PRN ×2 (07:26→16:32)
[2021-04-29] MEDS: PRENATAL VIT27-FE FUMARATE-FOLIC ACID VIT TAB PO SCH (09:00)
[2021-04-29] MEDS: PROMETHAZINE 25 MG RECT SUPP PR SCH ×2 (09:21→14:12)
--- NOTE | 2021-04-29 10:22 | Gastroenterology Progress Note ---
Assessment and Plan - Patient Problems (1) Elevated LFTs Current Visit: Yes Status: Acute Plan to address problem: - Will check CMV and Deanna Mcmullen. - May need CCY but RUQ US confirms only gallbladder sludge without cholecystitis. - For now, continue current antiemetic therapy. - Will also get MRCP to r/o stone given elevated LFTs and GB sludge. (2) Hyperemesis gravidarum Current Visit: Yes Status: Acute Subjective Date of service: 04/29/21 Principal diagnosis: IUP at 12w6d, Hyperemesis, Elevated LFTs Interval history: The patient was able to tolerate some of her ensure yesterday, but had nausea today. She has no fevers or severe abdominal pain. Objective - Constitutional Vitals: Temp Pulse Resp BP Pulse Ox 97.9 F 52 L 16 120/68 96 04/29/21 07:32 04/29/21 07:32 04/29/21 07:32 04/29/21 07:32 04/29/21 07:32 General appearance: no acute distress - Respiratory Respiratory effort: normal Respiratory: bilateral: CTA - Cardiovascular Rhythm: regular Heart Sounds: Present: S1 & S2 - Gastrointestinal General gastrointestinal: Present: soft, non-tender, non-distended - Labs CBC & Chem 7: 04/24/21 15:44 04/28/21 10:10 Labs: Laboratory Results - last 24 hr 04/28/21 10:10 Sodium 138 Potassium 3.1 L D Chloride 98.3 Carbon Dioxide 25 D Anion Gap 18 BUN < 1 L Creatinine 0.4 L Estimated GFR > 60 BUN/Creatinine Ratio 3 Glucose 167 H Calcium 8.6 Total Bilirubin 0.20 AST 56 H ALT 168 H Alkaline Phosphatase 76 Total Protein 5.9 L Albumin 3.1 L Albumin/Globulin Ratio 1.1
--- NOTE | 2021-04-29 13:00 | Magnetic Resonance Report ---
MRI ABDOMEN WITHOUT CONTRAST INDICATION: abnormal LFTs. TECHNIQUE: Multiplanar, multisequence MR images were obtained through the abdomen without contrast. COMPARISON: Limited abdominal ultrasound from 04/24/2021. CT abdomen and pelvis with contrast from 01/22/2021. FINDINGS: LOWER CHEST: No significant abnormality. LIVER: No significant abnormality. GALLBLADDER: No significant abnormality. BILE DUCTS: No significant abnormality. PANCREAS: No significant abnormality. SPLEEN: No significant abnormality. ADRENALS: No significant abnormality. RIGHT KIDNEY / URETER: No significant abnormality. LEFT KIDNEY / URETER: No significant abnormality. STOMACH / SMALL BOWEL: No significant abnormality. COLON: No significant abnormality. APPENDIX: Not visualized. PERITONEUM: No free fluid. No fluid collection. LYMPH NODES: No significant adenopathy. AORTA / ARTERIES: No significant abnormality. IVC / VEINS: No significant abnormality. ADDITIONAL FINDINGS: An intrauterine is partially visualized. SKELETAL SYSTEM: No significant abnormality. IMPRESSION: No significant abnormality to explain the patient's abnormal liver function testing. Signer Name: Daniel Curiel MD Signed: 04/29/2021 12:56 PM Workstation Name: [employer]
[2021-04-30 05:39] LABS: Alanine Aminotransferase 114 units/L (7-56); Calcium 8.3 mg/dL (8.4-10.2); Hemolysis Index 2
[2021-04-30 05:51] LABS: BUN/Creatinine Ratio 3; Blood Urea Nitrogen 1 mg/dL (7-17)
[2021-04-30] MEDS ORDERED: POTASSIUM CHLORIDE 10 MEQ 10 MEQ/100 ML BAG IV SCH (07:00)
--- NOTE | 2021-04-30 07:42 | Progress Note ---
Assessment and Plan A: IUP at 13w1d (ELISABETH 11/04/21 by 8 wk gustavo) Hypokalemia Hyperemesis Gallbladder Sludge Elevated LFTs- improving. AST normal, ALT decreasing P: Transition to PO meds, scheduled Reglan, PRN Zofran Repeat serum potassium now Replete potassium as indicated Closely monitor clinical status Subjective - Subjective Date of service: 04/30/21 Principal diagnosis: IUP at 13wks, Hyperemesis, Elevated LFTs Interval history: Pt reports feeling much better this morning. No emesis overnight. She tolerated some ensure, salad, turkey yesterday. No obstetric complaints. Labs this AM with severe hypokalemia however. Patient reports: no new complaints, no vaginal bleeding Objective - Vital Signs Vital Signs: Vital Signs - 12hr 04/29/21 04/29/21 04/30/21 20:00 20:48 01:29 Temperature 98.4 F 98.1 F Pulse Rate 55 L 54 L Respiratory 18 20 20 Rate Blood Pressure 120/78 125/72 Blood Pressure [Left] O2 Sat by Pulse 98 95 99 Oximetry 04/30/21 04:25 Temperature 97.2 F L Pulse Rate 82 Respiratory 18 Rate Blood Pressure Blood Pressure 114/63 [Left] O2 Sat by Pulse 100 Oximetry - Exam Breasts: deferred Abdomen: Present: soft - Labs Labs: Abnormal Labs 04/24/21 04/24/21 04/24/21 15:44 15:44 15:44 RBC 5.57 H Hgb 14.8 H MCV 76 L MCH 27 L MCHC 35 H RDW 16.1 H [place] % (Auto) 7.8 H Lymph # (Auto) 0.8 L Seg Neutrophils % 76.0 H Sodium 133 L Potassium 3.2 L Chloride 90.7 L Carbon Dioxide BUN 4 L Creatinine 0.4 L Glucose Calcium AST 129 H ALT 195 H Alkaline Phosphatase 135 H Total Protein 8.3 H Albumin TSH HCG, Quant 66541 H Urine WBC (Auto) 04/24/21 04/25/21 04/26/21 16:44 13:01 13:06 RBC Hgb MCV MCH MCHC RDW [place] % (Auto) Lymph # (Auto) Seg Neutrophils % Sodium 135 L 132 L Potassium 3.1 L Chloride 97.1 L 97.7 L Carbon Dioxide 17 L D BUN 3 L 2 L Creatinine 0.4 L 0.4 L Glucose 107 H Calcium AST 124 H 107 H ALT 202 H 209 H Alkaline Phosphatase Total Protein Albumin 3.4 L 3.6 L TSH HCG, Quant Urine WBC (Auto) 8.0 H 04/27/21 04/28/21 04/30/21 03:11 10:10 04:36 RBC Hgb MCV MCH MCHC RDW [place] % (Auto) Lymph # (Auto) Seg Neutrophils % Sodium Potassium 3.1 L D 2.5 L* Chloride 93.8 L Carbon Dioxide 32 H D BUN < 1 L 1 L Creatinine 0.4 L 0.3 L Glucose 167 H 142 H Calcium 8.3 L AST 56 H ALT 168 H 114 H Alkaline Phosphatase Total Protein 5.9 L 5.5 L Albumin 3.1 L 3.0 L TSH 0.078 L HCG, Quant Urine WBC (Auto) Laboratory Results - last 24 hr 04/30/21 04:36 Sodium 138 Potassium 2.5 L* Chloride 93.8 L Carbon Dioxide 32 H D Anion Gap 15 BUN 1 L Creatinine 0.3 L Estimated GFR > 60 BUN/Creatinine Ratio 3 Glucose 142 H Calcium 8.3 L Total Bilirubin 0.20 AST 22 ALT 114 H Alkaline Phosphatase 66 Total Protein 5.5 L Albumin 3.0 L Albumin/Globulin Ratio 1.2
[2021-04-30] MEDS ORDERED: ONDANSETRON 8 MG ODT TAB PO PRN (09:00)
[2021-04-30] MEDS: HYDROCORTISONE SOD SUCC 100 MG/2 ML VIAL IV SCH ×2 (10:19→18:40)
--- NOTE | 2021-04-30 10:50 | Event Note ---
Date: 04/30/21 Repeat potassium 2.3. 40 meq K Dur ordered. Continue to monitor clinically.
[2021-04-30] MEDS ORDERED: POTASSIUM CHLORIDE ER 20 MEQ TAB PO NR (12:00)
--- NOTE | 2021-04-30 14:58 | Gastroenterology Progress Note ---
Assessment and Plan - Patient Problems (1) Elevated LFTs Current Visit: Yes Status: Acute Plan to address problem: - Will check CMV and Deanna Mcmullen (pending). MRCP (-) stone or obstruction. US (+) trace sludge. - May need CCY but RUQ US confirms only gallbladder sludge without cholecystitis. - For now, continue current antiemetic therapy. - If persists after delivery, would get a HIDA scan. (2) Hyperemesis gravidarum Current Visit: Yes Status: Acute Subjective Date of service: 04/30/21 Principal diagnosis: IUP at 13wks, Hyperemesis, Elevated LFTs Interval history: The patient is now tolerating liquids and some solid foods. She says she feels much better. Objective - Constitutional Vitals: Temp Pulse Resp BP Pulse Ox 98.2 F 58 L 14 112/71 96 04/30/21 12:13 04/30/21 12:13 04/30/21 12:13 04/30/21 12:13 04/30/21 12:13 General appearance: no acute distress - Respiratory Respiratory effort: normal Respiratory: bilateral: CTA - Cardiovascular Rhythm: regular Heart Sounds: Present: S1 & S2 - Gastrointestinal General gastrointestinal: Present: soft, non-tender, non-distended - Labs CBC & Chem 7: 04/24/21 15:44 04/30/21 09:35 Labs: Laboratory Results - last 24 hr 04/30/21 04/30/21 04:36 09:35 Sodium 138 Potassium 2.5 L* 2.3 L* Chloride 93.8 L Carbon Dioxide 32 H D Anion Gap 15 BUN 1 L Creatinine 0.3 L Estimated GFR > 60 BUN/Creatinine Ratio 3 Glucose 142 H Calcium 8.3 L Total Bilirubin 0.20 AST 22 ALT 114 H Alkaline Phosphatase 66 Total Protein 5.5 L Albumin 3.0 L Albumin/Globulin Ratio 1.2
[2021-04-30] MEDS: METOCLOPRAMIDE 10 MG TAB PO SCH ×2 (18:40→22:35)
[2021-04-30] MEDS ORDERED: POTASSIUM CHLORIDE ER 20 MEQ TAB PO ONE (19:00)
[2021-04-30] MEDS: PRENATAL VIT27-FE FUMARATE-FOLIC ACID VIT TAB PO SCH (19:16)
[2021-04-30] MEDS: POTASSIUM CHLORIDE ER 20 MEQ TAB PO SCH (22:33)
[2021-05-01] MEDS: POTASSIUM CHLORIDE ER 20 MEQ TAB PO SCH ×2 (03:00→06:09)
[2021-05-01] MEDS: HYDROCORTISONE SOD SUCC 100 MG/2 ML VIAL IV SCH ×2 (04:14→12:34)
[2021-05-01 12:34] VITALS: BP 96/54
[2021-05-01] MEDS: METOCLOPRAMIDE 10 MG TAB PO SCH (12:34)
[2021-05-01] MEDS: PRENATAL VIT27-FE FUMARATE-FOLIC ACID VIT TAB PO SCH (12:35)
--- NOTE | 2021-05-01 13:09 | Progress Note ---
Assessment and Plan A: IUP at 13w1d (ELISABETH 11/04/21 by 8 wk gustavo) Hypokalemia- repleted Hyperemesis Gallbladder Sludge Elevated LFTs- much improved P: Discharge today with follow up next week Subjective - Subjective Date of service: 05/01/21 Principal diagnosis: IUP at 13wks, Hyperemesis, Elevated LFTs Interval history: Patient feeling well. Her potassium was in the normal range this morning. She had no episode of emesis overnight.. Patient reports: appetite normal, voiding normally, pain well controlled, ambulating normally Objective - Vital Signs Latest vital signs: Vital Signs Temp Pulse Resp BP Pulse Ox 05/01/21 12:21 98.6 F 88 18 96/54 97 05/01/21 08:10 99 05/01/21 07:37 98.1 F 58 L 18 129/83 98 05/01/21 06:01 98.3 F 60 18 116/73 98 05/01/21 01:54 98.1 F 53 L 16 122/81 100 04/30/21 20:51 98.2 F 58 L 16 114/78 99 04/30/21 20:15 98 04/30/21 15:45 98.0 F 57 L 18 122/79 96 Intake and Output 04/30/21 05/01/21 05/01/21 22:59 06:59 14:59 Intake Total 960 180 Output Total 300 700 600 Balance 660 -520 -600 Intake: Oral 720 Intake, Free Water 240 180 Output: Urine 300 700 600 Void 300 700 600 Other: Total, Intake Amount 720 Total, Output Amount 300 400 300 Voiding Method Toilet # Voids Void 1 Weight 56 kg - Exam Breasts: Present: deferred - Labs Labs: Abnormal lab results 04/30/21 04/30/21 05/01/21 Range/Units 16:59 23:24 04:12 Potassium 2.5 L* 3.0 L 3.3 L (3.6-5.0) mmol/L 05/01/21 Range/Units 07:34 Potassium 3.3 L (3.6-5.0) mmol/L
--- NOTE | 2021-05-01 13:15 | Discharge Summary ---
Providers - Providers Date of Admission: 04/26/21 13:57 Date of discharge: 05/01/21 Attending physician: OCHOA BAUER 04/27/21 02:17 Consult to Dietitian/Nutrition [CONS] Routine Physician Instructions: Reason For Exam: Reason for Consult: hyper grav Reason for Consult: Poor oral intake 04/28/21 09:41 Consult to Physician [CONS] Routine Comment: Consulting Provider: HOLLY LO Physician Instructions: Reason For Exam: IUP at 13 wks, persistent nausea and vomiting Primary care physician: [facility] Hospitalization Reason for admission: other (nausea, vomiting, dehydration ) Hospital course: This patient was admitted to the hospital at 12 weeks secondary to persistent nausea vomiting and elevated liver function testing. During her hospitalization she had a gastroenterology consult as well as IV hydration, IV antiemetics and was transitioned to p.o. antiemetics. She was noted to be hypokalemic and her potassium was repleted as well. On hospital day #7 she met discharge criteria. She will be discharged on oral Reglan and Zofran with instructions to follow-up next week with [facility] as scheduled. Condition at discharge: Stable Disposition: 01 HOME / SELF CARE / HOMELESS - Discharge Diagnoses (1) Elevated LFTs Status: Acute (2) Hyperemesis gravidarum Status: Acute (3) Hypokalemia Status: Acute (4) Gallbladder sludge Status: Acute Plan - Discharge Medications Prescriptions: Metoclopramide [Reglan] 10 mg PO ACHS #120 tablet Ondansetron (Nf) [Zofran TAB] 8 mg PO Q8HR PRN #60 tablet PRN Reason: Nausea - Provider Discharge Summary Activity: routine Diet: routine Additional instructions: [] Smoking cessation referral if applicable(refer to patient education folder for contact #) [] Refer to [facility]'s [facility] Booklet Call your doctor immediately for: * Fever > 100.5 * Heavy vaginal bleeding ( >1 pad per hour) * Severe persistent headache * Shortness of breath * Reddened, hot, painful area to leg or breast * Drainage or odor from incision. * Keep incision clean and dry at all times and follow doctor's instructions regarding bathing/showering - Follow up plan Follow up: PRIMARY CARE, [Primary Care Provider] - 3-5 Days [facility] [Provider Group] - 7 Days Forms: C Discharge Summary
--- NOTE | 2021-05-03 09:35 | Ultrasound Report ---
LIMITED RUQ ABDOMINAL ULTRASOUND INDICATION: Elevated LFTs, abd pain/nausea and vomiting. COMPARISON: CT abdomen/pelvis from 01/22/2021. FINDINGS: Pancreas: Visualized portions show no significant abnormality. Abdominal Aorta: Normal size. IVC: No significant abnormality. Liver: The liver measures 12.5 cm in length. No significant abnormality. Normal hepatopedal blood fl ow in the main portal vein. Gallbladder: Trauma sludge but no inflammatory change or stone disease.. Bile ducts: No significant abnormality. Common bile duct measures 2 mm. Right kidney: No significant abnormality visualized.. Free fluid: None. Additional Findings: None. IMPRESSION: 1. Small amount of biliary sludge but otherwise unremarkable exam and no inflammatory change.. Signer Name: Man Cook MD Signed: 04/24/2021 5:26 PM Workstation Name: [id number]
[2021-05-04 05:54] LABS: ANA Screen, IFA Negative (Negative)
== END 2021-05-01 14:40 | disposition home or self-care (01) | DRG 833 ==
LOC: ED 14:43 → OB 22:05 → OBSVTOIN 04-26 13:57
PROVIDERS: ADMIT Obstetrics & Gynecology; ATTEND Obstetrics & Gynecology
DX: O21.0 Mild hyperemesis gravidarum (principal); O99.281 Endocrine, nutritional and metabolic diseases complicating pregnancy, first trimester; E87.6 Hypokalemia; Z3A.13 13 weeks gestation of pregnancy; O26.891 Other specified pregnancy related conditions, first trimester; R79.89 Other specified abnormal findings of blood chemistry; O99.611 Diseases of the digestive system complicating pregnancy, first trimester; K82.8 Other specified diseases of gallbladder; Z20.822 Contact with and (suspected) exposure to COVID-19
CPT/HCPCS: 36415; 74181; 76705; 80053; 80074; 81001; 83690; 83735; 84132; 84443; 84702; 85025; 86038; 86644; 86645; 86665; G0378; J1720; J2405; J2765; J3480; J7030; J7120; J7121; Q0162; Q0169; U0003

== ENCOUNTER 2021-10-26 11:48 | Inpatient (IN) | payer BC, OTHER ==
[2021-10-26] MEDS ORDERED: LACTATED RINGERS 2,000 ML ONE (11:55)
[2021-10-26] MEDS ORDERED: fentaNYL 100 MCG/2 ML INJ IV ONE (12:13)
[2021-10-26] MEDS ORDERED: LOPERAMIDE 2 MG CAP PO PRN (12:22)
[2021-10-26] MEDS ORDERED: LIDOCAINE (2%) 20 MG/1 ML VIAL 20 ML MDV INFILTRATI ONE (12:22)
[2021-10-26] MEDS ORDERED: CARBOPROST TROMETHAMINE 250 MCG/1 ML INJ IM PRN (12:22)
[2021-10-26] MEDS ORDERED: MINERAL OIL 30 ML ORAL LIQD PO PRN (12:22)
[2021-10-26] MEDS ORDERED: METHYLERGONOVINE MALEATE 0.2 MG/ML VIAL IM PRN (12:22)
[2021-10-26] MEDS ORDERED: ePHEDrine SULFATE 50 MG/1 ML INJ IV PRN ×2 (12:22→12:36)
[2021-10-26] MEDS ORDERED: OXYTOCIN 10 UNIT/1 ML INJ IM PRN (12:22)
[2021-10-26] MEDS ORDERED: miSOPROStol 200 MCG TAB PR PRN (12:22)
[2021-10-26] MEDS ORDERED: TERBUTALINE 1 MG/1 ML INJ SUB-Q PRN (12:22)
[2021-10-26] MEDS ORDERED: BUTORPHANOL 2 MG/1 ML INJ IV PRN ×2 (12:30)
[2021-10-26] MEDS ORDERED: NalbUPHINE 10 MG/1 ML INJ IV PRN (12:30)
[2021-10-26] MEDS ORDERED: LACTATED RINGERS 1,000 ML IV SCH ×2 (12:30→14:00)
[2021-10-26] MEDS ORDERED: ACETAMINOPHEN 325 MG TAB PO PRN ×2 (12:30→14:22)
[2021-10-26] MEDS ORDERED: fentaNYL 100 MCG/2 ML INJ IV PRN (12:30)
[2021-10-26] MEDS ORDERED: NALOXONE 2 MG/2 ML INJ IV PRN (12:36)
[2021-10-26 12:48] LABS: Hematocrit 30.2 % (30.3-42.9); Hemoglobin 9.9 gm/dl (10.1-14.3); Red Blood Count 4.34 M/mm3 (3.65-5.03)
[2021-10-26 12:49] LABS: Mean Corpuscular HGB Conc 33 % (30-34); Mean Corpuscular Volume 70 fl (79-97); Red Cell Distribution Width 18.7 % (13.2-15.2)
[2021-10-26] MEDS ORDERED: OXYTOCIN DRIP 30 UNITS/500 ML BAG IV SCH ×2 (13:00)
[2021-10-26] MEDS ORDERED: fentaNYL-BUPIV 2 MCG/ML-0.125% 200 MCG/100 ML BAG EPIDURAL SCH (13:00)
[2021-10-26 13:09] LABS: Platelet Count 257 K/mm3 (140-440)
--- NOTE | 2021-10-26 14:21 | History and Physical Report ---
History of Present Illness Date of examination: 10/26/21 Date of admission: 10/26/21 12:22 Chief complaint: Contractions History of present illness: 21y/o @ 39+2 weeks presents in active labor. The patient has no had care with [facility] during this . Her GBS status is unknown. 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 She is Rh negative. Unsure if patient has received rhogam during this . Past History Past Medical History: other (carrier for cystic fibrosis; Rh negative) Past Surgical History: no surgical history Social history: single - Obstetrical History Expected Date of Delivery: 10/30/21 Actual Gestation: 39 Week(s) 3 Day(s) : 2 Para: 1 Hx # Term Pregnancies: 1 Number of Pregnancies: 0 Spontaneous Abortions: 0 Induced : 0 Number of Living Children: 1 Medications and Allergies Allergies Allergy/AdvReac Type Severity Reaction Status Date / Time No Known Allergies Allergy Unverified 03/02/20 11:07 Home Medications Medication Instructions Recorded Confirmed Last Taken Type Doxylamine Succinate/Vit B6 1 each PO BID #30 tablet.dr 03/27/21 04/26/21 Unknown Rx [Conner Dr 10-10 mg Tablet] Ondansetron [Zofran Odt] 4 mg PO Q8HR PRN #20 tab.rapdis 04/11/21 04/26/21 Unknown Rx Pnv No.121/Iron/Folic Acid 1 tab PO QDAY 04/26/21 04/26/21 Unknown History [ Multivitamin Tablet] Metoclopramide [Reglan] 10 mg PO ACHS #120 tablet 04/30/21 Unknown Rx Ondansetron (Nf) [Zofran TAB] 8 mg PO Q8HR PRN #60 tablet 04/30/21 Unknown Rx Active Meds: Active Medications Acetaminophen (Acetaminophen 325 Mg Tab) 650 mg PO Q4H PRN PRN Reason: Pain, Mild (1-3) Butorphanol Tartrate (Butorphanol 2 Mg/1 Ml Inj) 2 mg IV Q2H PRN PRN Reason: Pain , Severe (7-10) Butorphanol Tartrate (Butorphanol 2 Mg/1 Ml Inj) 1 mg IV Q2H PRN PRN Reason: Pain, Moderate(4-6) LABOR PAIN Carboprost Tromethamine (Carboprost Tromethamine 250 Mcg/1 Ml Inj) 250 mcg IM ONCE PRN PRN Reason: Uterine Bleeding Ephedrine Sulfate (Ephedrine Sulfate 50 Mg/1 Ml Inj) 10 mg IV Q2M PRN PRN Reason: Hypotension Last Admin: 10/26/21 13:51 Dose: 10 mg Ephedrine Sulfate (Ephedrine Sulfate 50 Mg/1 Ml Inj) 10 mg IV Q2M PRN PRN Reason: Hypotension Fentanyl (Fentanyl 100 Mcg/2 Ml Inj) 100 mcg IV Q2H PRN PRN Reason: Pain,Severe (7-10) LABOR PAIN Oxytocin/Sodium Chloride (Pitocin/Ns 30 Unit/500ml) 30 units in 500 mls @ 2 mls/hr IV TITR MCKAY; Protocol Oxytocin/Sodium Chloride (Pitocin/Ns 30 Unit/500ml) 30 units in 500 mls @ 40 mls/hr IV TITR MCKAY; Protocol Fentanyl/Bupivacaine/Sodium Chlor (Fentanyl-Bupiv 2 Mcg/Ml-0.125%) 200 mcg in 100 mls @ 12 mls/hr EPIDURAL TITR MCKAY; Protocol Lactated Ringer's (Lactated Ringers) 1,000 mls @ 125 mls/hr IV DIRECT MCKAY Loperamide HCl (Loperamide 2 Mg Cap) 2 mg PO ONCE PRN PRN Reason: give with Hemabate Methylergonovine Maleate (Methylergonovine Maleate 0.2 Mg/Ml Vial) 0.2 mg IM ONCE PRN PRN Reason: Uterine Bleeding Mineral Oil (Mineral Oil 30 Ml Oral Liqd) 30 ml PO QHS PRN PRN Reason: Constipation Misoprostol (Misoprostol 200 Mcg Tab) 800 mcg RI ONCE PRN PRN Reason: Uterine Bleeding Nalbuphine HCl (Nalbuphine 10 Mg/1 Ml Inj) 10 mg IV Q2H PRN PRN Reason: Pain, Moderate (4-6) Naloxone HCl (Naloxone 2 Mg/2 Ml Inj) 0.2 mg IV Q5M PRN PRN Reason: Respiratory sedation Oxytocin (Oxytocin 10 Unit/1 Ml Inj) 10 unit IM ONCE PRN PRN Reason: Uterine Bleeding Terbutaline Sulfate (Terbutaline 1 Mg/1 Ml Inj) 0.25 mg SUB-Q ONCE PRN PRN Reason: Hyperstimulation/Hypertonicity Review of Systems All systems: negative Genitourinary: contractions - Vital Signs Vital signs: Vital Signs Pulse BP 61 103/50 10/26/21 12:26 10/26/21 12:26 Temp Pulse Resp BP Pulse Ox 63 104/51 100 10/26/21 14:18 10/26/21 14:18 10/26/21 14:06 - Physical Exam Breasts: Positive: deferred Cardiovascular: Regular rate Lungs: Positive: Clear to auscultation Abdomen: Positive: normal appearance Results Result Diagrams: 10/26/21 12:10 Abnormal lab results 10/26/21 Range/Units 12:10 Hgb 9.9 L (10.1-14.3) gm/dl Hct 30.2 L (30.3-42.9) % MCV 70 L (79-97) fl MCH 23 L (28-32) pg RDW 18.7 H (13.2-15.2) % All other labs normal. Assessment and Plan - Patient Problems (1) Insufficient care Current Visit: Yes Status: Acute Plan to address problem: admit to L&D (2) Active labor at term Current Visit: Yes Status: Acute
[2021-10-26] MEDS ORDERED: diphenhydrAMINE 25 MG CAP PO PRN (14:22)
[2021-10-26] MEDS ORDERED: WITCH HAZEL/ GLYCERIN PAD TP PRN (14:22)
[2021-10-26] MEDS ORDERED: HYDROcodone/ACETAMINOPHEN 5-325 MG TAB PO PRN (14:22)
[2021-10-26] MEDS ORDERED: PROMETHAZINE 25 MG RECT SUPP PR PRN (14:22)
[2021-10-26] MEDS ORDERED: LANOLIN/ZINC/DIMETHICONE (LANSINOH) 7 GM TP PRN (14:22)
[2021-10-26] MEDS ORDERED: ONDANSETRON 4 MG/2 ML INJ IV PRN (14:22)
[2021-10-26] MEDS ORDERED: PROMETHAZINE 25 MG TAB PO PRN (14:22)
[2021-10-26] MEDS ORDERED: MAGNESIUM HYDROXIDE (MOM) ORAL LIQD UDC PO PRN (14:22)
--- NOTE | 2021-10-26 14:22 | Procedure Note ---
OB Delivery Note - Delivery Date of Delivery: 10/26/21 Surgeon: OCHOA BAUER Estimated blood loss: other (75ml) - Vaginal Delivery presentation: vertex Delivery position: OA Delivery monitor: external FHT, external uterine Route of delivery: Delivery placenta: spontaneous Delivery cord: nuchal cord Episiotomy: none Delivery laceration: none Anesthesia: epidural - A at 1 minute: 8 at 5 minutes: 9 Infant Gender: Female (5lbs 15oz)
[2021-10-26] MEDS: IBUPROFEN 800 MG TAB PO SCH ×2 (14:52→23:43)
--- NOTE | 2021-10-26 15:37 | Anesthesia Consultation ---
Anesthesia Consult and Med Hx Date of service: 10/26/21 - Airway Anesthetic Teeth Evaluation: Poor ROM Head & Neck: Adequate Mental/Hyoid Distance: Adequate Mallampati Class: Class II Intubation Access Assessment: Probably Good - Pulmonary Exam CTA: Yes - Cardiac Exam Cardiac Exam: RRR - Pre-Operative Health Status ASA Pre-Surgery Classification: ASA2 Proposed Anesthetic Plan: Epidural - Pulmonary Hx Smoking: No Hx Asthma: No Hx Respiratory Symptoms: No SOB: No COPD: No Hx Pneumonia: No Hx Sleep Apnea: No - Cardiovascular System Hx Hypertension: No Hx Coronary Artery Disease: No Hx Heart Attack/AMI: No Hx Angina: No Hx Percutaneous Transluminal Coronary Angioplasty (PTCA): No Hx Cardia Arrhythmia: No Hx Pacemaker: No Hx Internal Defibrillator: No Hx Valvular Heart Disease: No Hx Heart Murmur: No Hx Peripheral Vascular Disease: No - Central Nervous System Hx Neuromuscular Disorder: No Hx Seizures: No CVA: No Hx Back Pain: No Hx Psychiatric Problems: No - Gastrointestinal Hx Ulcer: No Hx Gastroesophageal Reflux Disease: No - Endocrine Hx Renal Disease: No Hx End Stage Renal Disease: No Hx Cirrhosis: No Hx Liver Disease: No Hx Insulin Dependent Diabetes: No Hx Non-Insulin Dependent Diabetes: No Hx Thyroid Disease: No Hx Hypothyroidism: No Hx Hyperthyroidism: No - Hematic Hx Anemia: No Hx Sickle Cell Disease: No - Other Systems Hx Alcohol Use: No Hx Substance Use: No Hx Cancer: No Hx Obesity: No
--- NOTE | 2021-10-26 15:38 | Progress Note ---
Labor Epidural - Labor Epidural Start Time: 13:11 Stop Time: 13:15 Performed by:: YOSI OH Procedure: Patient is requesting epidural for labor pain. H&P and labs reviewed. Procedure explained, questions answered, consent obtained. Patient placed in sitting position with monitors applied. Timeout performed immediately before start of procedure. Prep/drape in usual sterile fashion. Skin localized 3 mL 1% lidocaine at L[3]-L[4] interspace. 17-gauge Touhy epidural needle advanced to PIEDAD with saline at [4] cm x 1 attempt. No blood/CSF noted via epidural needle. Epidural catheter advanced to [10] cm. Negative aspiration for blood and CSF via catheter, negative response to test dose 3 ml 1.5% lidocaine w/ Epi. Sterile dressing applied followed by tape reinforcement. Patient tolerated procedure well. No immediate complications noted.
--- NOTE | 2021-10-26 15:39 | Post Anesthesia Evaluation ---
- Post Anesthesia Evaluation Patient Participated: Yes Airway Patent: Yes Stable Respiratory Function: Yes Nausea/Vomiting: No Temp > 96.8F: Yes Pain Manageable: Yes Adequeate Hydration: Yes Anesthesia Complications: No Block Receding Appropriately: Yes Patient on Ventilator: No
[2021-10-26 21:45] LABS: Amphetamine Screen,Urine PRESUMPTIVE NEGATIVE; Benzodiazepines Screen,Urine PRESUMPTIVE NEGATIVE; Cannabinoid Screen,Urine PRESUMPTIVE POSITIVE; Cocaine Screen,Urine PRESUMPTIVE NEGATIVE; Methadone Screen,Urine PRESUMPTIVE NEGATIVE; Opiate Screen,Urine PRESUMPTIVE NEGATIVE
[2021-10-26 21:53] LABS: Hepatitis B Surface Antigen Non-Reactive (Negative); Hepatitis C Virus Antibody Non-Reactive (NonReactive)
[2021-10-27 03:54] LABS: Hematocrit 26.9 % (30.3-42.9); Hemoglobin 8.7 gm/dl (10.1-14.3)
[2021-10-27] MEDS: IBUPROFEN 800 MG TAB PO SCH ×3 (05:31→22:18)
--- NOTE | 2021-10-27 08:44 | Progress Note ---
Assessment and Plan - Patient Problems (1) Status post normal vaginal delivery Current Visit: Yes Status: Acute Plan to address problem: Continue routine PP orders Continue to assess fundal height Anticipate d/c home in 24 hrs if stable (2) Rh negative status during Current Visit: Yes Status: Acute Plan to address problem: Rhogam workup (3) Anemia Current Visit: No Status: Acute Qualifiers: Anemia type: iron deficiency Plan to address problem: Asymptomatic Increase iron rich foods into diet (4) Cystic fibrosis carrier Current Visit: Yes Status: Acute Subjective - Subjective Date of service: 10/27/21 Principal diagnosis: S/P ; PPD#1 Interval history: 21y/o @ 39+2 weeks presents in active labor. The patient has not had care with [facility] during this . Her GBS status is unknown. 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 She is Rh negative. Unsure if patient has received rhogam during this . Delivered viable female via . Patient reports: appetite normal, voiding normally, flatus, ambulating normally, other (reports moderate back pain), no bowel movement [place]: doing well, bottle feeding Objective - Vital Signs Latest vital signs: Vital Signs Temp Pulse Resp BP BP Pulse Ox Pulse Ox 10/27/21 05:30 98 10/27/21 04:54 98.0 F 71 20 124/74 100 10/27/21 03:30 97 10/27/21 01:20 98 10/27/21 00:49 98.5 F 58 L 20 118/67 99 10/26/21 23:40 98 10/26/21 21:20 98 10/26/21 20:25 98 10/26/21 16:40 98.1 F 60 18 123/72 100 98 10/26/21 16:33 61 138/69 10/26/21 16:32 67 164/80 10/26/21 16:29 64 100 10/26/21 16:24 66 100 10/26/21 16:19 70 99 10/26/21 16:17 70 154/79 10/26/21 16:14 70 100 10/26/21 16:09 67 99 10/26/21 16:04 61 98 10/26/21 16:03 65 158/65 10/26/21 15:59 65 99 10/26/21 15:54 66 100 10/26/21 15:49 60 99 10/26/21 15:47 60 136/63 10/26/21 15:44 65 99 10/26/21 15:39 63 99 10/26/21 15:34 61 147/78 100 10/26/21 15:17 71 172/103 10/26/21 15:01 54 L 137/73 10/26/21 14:47 58 L 128/68 10/26/21 14:32 97.6 F 10/26/21 14:30 62 119/64 10/26/21 14:28 61 135/62 10/26/21 14:27 56 L 128/61 10/26/21 14:20 60 117/68 10/26/21 14:18 63 104/51 10/26/21 14:15 56 L 164/66 10/26/21 14:06 77 100 10/26/21 14:01 114 H 100 10/26/21 14:00 99 H 29 L 10/26/21 13:56 54 L 122/76 10/26/21 13:55 52 L 136/68 100 10/26/21 13:52 51 L 116/74 10/26/21 13:50 61 109/71 100 10/26/21 13:48 55 L 112/72 10/26/21 13:46 65 109/64 10/26/21 13:45 65 100 10/26/21 13:44 62 122/82 10/26/21 13:42 58 L 110/58 10/26/21 13:40 75 100 10/26/21 13:38 81 130/59 10/26/21 13:36 57 L 112/56 10/26/21 13:35 64 100 10/26/21 13:34 52 L 113/61 10/26/21 13:32 55 L 102/67 10/26/21 13:30 61 110/65 100 10/26/21 13:28 57 L 115/70 10/26/21 13:26 55 L 112/67 10/26/21 13:25 57 L 100 10/26/21 13:24 57 L 119/74 10/26/21 13:22 63 112/69 10/26/21 13:20 68 135/77 100 10/26/21 13:18 97 H 133/61 10/26/21 13:16 71 123/71 10/26/21 13:15 71 100 10/26/21 13:14 63 125/68 10/26/21 13:12 60 113/60 10/26/21 13:10 80 113/76 100 10/26/21 12:26 61 103/50 Intake and Output 10/26/21 10/27/21 10/27/21 23:59 07:59 15:59 Intake Total 240 Output Total 800 800 Balance -800 -560 Intake: Oral 240 Output: Urine 800 800 Void 800 800 Other: Total, Intake Amount 240 Total, Output Amount 800 800 # Voids Void 1 2 - Exam Breasts: Present: normal Cardiovascular: Present: Regular rate Lungs: Present: Normal air movement Abdomen: Present: soft Uterus: Present: firm, fundal height above umbilicus (U+1, denies any abdominal pain or heavy bleeding/clots.) Extremities: Present: normal Deep Tendon Reflex Grade: Normal +2 - Labs Labs: Abnormal lab results 10/26/21 10/27/21 Range/Units 12:10 03:08 Hgb 9.9 L 8.7 L (10.1-14.3) gm/dl Hct 30.2 L 26.9 L (30.3-42.9) % MCV 70 L (79-97) fl MCH 23 L (28-32) pg RDW 18.7 H (13.2-15.2) %
[2021-10-28] MEDS: IBUPROFEN 800 MG TAB PO SCH (06:30)
--- NOTE | 2021-10-28 08:29 | Discharge Summary ---
Providers - Providers Date of Admission: 10/26/21 12:22 Date of discharge: 10/28/21 Attending physician: OCHOA BAUER 10/26/21 22:36 Consult to Case Management [CONS] Routine Services Needed at Discharge: Bakery Associate Notified:: Ext [phone] Additional Physician Instructions: Positive THC Primary care physician: TRANSACTION ADVISORY SERVICES MANAGER Hospitalization Reason for admission: active labor Delivery: Episiotomy: none Laceration: none Other procedures: none complications: none Discharge diagnosis: IUP at term delivered [place] baby: female Hospital course: 21y/o @ 39+2 weeks presents in active labor. The patient has not had care with [facility] during this . Her GBS status is unknown. 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 She is Rh negative. Unsure if patient has received rhogam during this . Delivered viable female via . Discharge criteria met on PPD#2. Condition at discharge: Good Disposition: 01 HOME / SELF CARE / HOMELESS - Discharge Diagnoses (1) Status post normal vaginal delivery Status: Acute (2) Rh negative status during Status: Acute (3) Anemia Status: Acute Qualifiers: Anemia type: iron deficiency (4) Cystic fibrosis carrier Status: Acute Plan - Discharge Medications Prescriptions: Ibuprofen [Motrin 800 MG tab] 800 mg PO Q8HR #30 tablet - Provider Discharge Summary Activity: routine, no sex for 6 weeks, no strenuous exercise, other Diet: other (Iron rich diet) Instructions: routine Additional instructions: [] Smoking cessation referral if applicable(refer to patient education folder for contact #) [] Refer to [facility] Booklet Call your doctor immediately for: * Fever > 100.5 * Heavy vaginal bleeding ( >1 pad per hour) * Severe persistent headache * Shortness of breath * Reddened, hot, painful area to leg or breast Return to office for next Depo-Provera injection on 01/20/2022 - Follow up plan Follow up: PRIMARY CARE, [Primary Care Provider] - 6 Weeks
[2021-10-28 08:44] VITALS: BP 118/79
[2021-10-28] MEDS ORDERED: medroxyPROGESTERone ACETATE 150 MG/ML SYRINGE IM NR (09:00)
== END 2021-10-28 13:45 | disposition home or self-care (01) | DRG 807 ==
LOC: TRG 11:48 → LD 11:50 → TRG 12:39 → OB 17:00
PROVIDERS: ADMIT Obstetrics & Gynecology; ATTEND Obstetrics & Gynecology
PROC: 10E0XZZ Delivery of Products of Conception, External Approach (ICD-10-PCS; principal; 2021-10-26)
PROC: 3E0R3BZ Introduction of Anesthetic Agent into Spinal Canal, Percutaneous Approach (ICD-10-PCS; 2021-10-26)
PROC: 00HU33Z Insertion of Infusion Device into Spinal Canal, Percutaneous Approach (ICD-10-PCS; 2021-10-26)
DX: O69.81X0 Labor and delivery complicated by cord around neck, without compression, not applicable or unspecified (principal); Z37.0 Single live birth; Z3A.39 39 weeks gestation of pregnancy; Z14.1 Cystic fibrosis carrier; Z20.822 Contact with and (suspected) exposure to COVID-19; O26.893 Other specified pregnancy related conditions, third trimester; Z67.21 Type B blood, Rh negative; O90.81 Anemia of the puerperium; D50.9 Iron deficiency anemia, unspecified
CPT/HCPCS: 36415; 59025; 80074; 80307; 85014; 85018; 85027; 85461; 86592; 86762; 86850; 86900; 86901; 87806; 96361; 96374; G0378; J3490; J1050; J2590; J3010; U0003

== ENCOUNTER 2022-01-02 09:58 | Emergency (ER) | payer BC, OTHER ==
--- NOTE | 2022-01-02 10:32 | Emergency Department Report ---
Blank Doc - Documentation Documentation: Patient was seen signing in for "foot pain". auto seat cover installer and myself called patient serval times with no answer. We tried to call patient at phone numbner listed in triage form and was not able to get in touch with patient. Patient left before being triage, examined, treated, or diagnosis. I did not see or examine the patient at this time.
== END 2022-01-02 17:00 | disposition left against medical advice (07) ==
LOC: ED 09:58
DX: S99.929A Unspecified injury of unspecified foot, initial encounter (principal); Z53.21 Procedure and treatment not carried out due to patient leaving prior to being seen by health care provider; X58.XXXA Exposure to other specified factors, initial encounter; Y93.89 Activity, other specified; Y92.89 Other specified places as the place of occurrence of the external cause; Y99.8 Other external cause status

== ENCOUNTER 2022-02-10 08:29 | Emergency (ER) | payer BC, OTHER ==
[2022-02-10 09:07] VITALS: BP 105/76
[2022-02-10 09:35] LABS: HCG Qualitative,Urine Negative (Negative)
[2022-02-10 10:22] LABS: Color,Urine Yellow (Yellow)
[2022-02-10 10:23] LABS: Bilirubin,Urine Negative (Negative); Blood,Urine Large (Negative); Urobilinogen,Urine < 2.0 mg/dL (<2.0)
[2022-02-10 10:31] LABS: Mucus,Urine 3+ /HPF
== END 2022-02-10 13:44 | disposition left against medical advice (07) ==
LOC: ED 08:29
DX: R11.10 Vomiting, unspecified (principal); Z53.21 Procedure and treatment not carried out due to patient leaving prior to being seen by health care provider
CPT/HCPCS: 81001; 81025